=== PATIENT | female | born 1965 | race Caucasian/White ===

== ENCOUNTER 2017-04-27 19:20 | Emergency (ER) | payer OTHER, SELFPAY | END 2017-04-27 19:51 | disposition home or self-care (01) | PROVIDERS: Emergency Provider Nurse Practitioner Family; Visit Provider Nurse Practitioner Family | DX: J02.0 Streptococcal pharyngitis (principal); Z90.710 Acquired absence of both cervix and uterus; F17.210 Nicotine dependence, cigarettes, uncomplicated; Z79.52 Long term (current) use of systemic steroids; Z88.6 Allergy status to analgesic agent; Z88.5 Allergy status to narcotic agent; Z88.0 Allergy status to penicillin | CPT/HCPCS: 87804; 87880; 99201 ==

== ENCOUNTER 2021-10-16 17:46 | Emergency (ER) | payer SELFPAY ==
[2021-10-16 19:02] VITALS: BP 149/68; PULSE 81; RESP 17; TEMP 36.7; O2SAT 96; BMI 23.0
--- NOTE | 2021-10-16 19:08 | HMH.EDUTC ---
[facility] Disposition Clinical Impression: Pharyngitis Qualifiers: Pharyngitis/tonsillitis etiology: unspecified etiology Qualified Code(s): J02.9 - Acute pharyngitis, unspecified Disposition: Home, Self-Care Condition on Discharge: Good Instructions: Strep Throat, DI for Strep Throat Additional Instructions: Drink plenty of fluids. Take tylenol or ibuprofen for pain or fever. Take the medications as directed. Follow up with your regular doctor. GO TO THE ER FOR ANY WORSENING SYMPTOMS Prescriptions: Cefdinir [Omnicef 300mg Capsule] 300 mg PO BID #20 cap Transmission Status: Received by [id number] predniSONE [Prednisone 20mg Tab] 20 mg PO BID 4 Days #8 tab Transmission Status: Received by [id number] Referrals: Provider,Referral, MD [Primary Care Provider] - Time of Disposition: 19:34 Medical Decision Making - Medical Records Medical records reviewed: No: I reviewed the patient's medical records. - Mitchell Inquiry Pt receiving controlled substance: No Vital Signs: 10/16/21 19:02 10/16/21 19:41 Temperature 98.0 F 98.0 F Temperature Source Oral Pulse Rate 81 Pulse Rate [Left Radial] 81 Respiratory Rate 17 17 Blood Pressure 149/68 H Blood Pressure [Right Arm] 149/68 H Blood Pressure Mean [Right Arm] 95 02 Sat by Pulse Oximetry 96 - Lab Data Lab Results 10/16/21 19:04: Group A Strep Rapid Negative Orders (Tests/Meds): ORDERS Category Date Time Status Strep Screen Confirmation Stat Micro 10/16/21 19:04 Received [facility] HPI - General Stated complaint: sore throat, cough, congestion Time Seen by Provider: 10/16/21 19:08 Source of Information: Patient Description of Symptoms (Recalled from Triage Doc. by RN): patient comes in today with complaints of sore throat that began today. patient also complaints of sore throat and cough that has been going on for 2 weeks. HEENT Symptoms (Recalled from RN notes): Yes Resp Symptoms (Recalled from RN notes): Yes Skin Symptoms (Recalled from RN notes): No MS Symptoms (Recalled from RN notes): No Functional Status (Recalled from RN notes): wnl - History of Present Illness Provider Complaint: She states that she has had a sore throat for the past 2 weeks. Her throat has been very sore and she is afraid she has strep throat. She denies fever and chills. She refuses a covid-19 swab today. - Related Data Previous Rx's Medication Instructions Recorded Cefdinir [Omnicef 300mg Capsule] 300 mg PO BID #20 cap 10/16/21 predniSONE [Prednisone 20mg 20 mg PO BID 4 Days #8 tab 10/16/21 Tab] Allergies Allergy/AdvReac Type Severity Reaction Status Date / Time codeine [CODEINE] Allergy Mild Verified 10/16/21 19:05 Penicillins [PENICILLINS] Allergy Mild Verified 10/16/21 19:05 ibuprofen [IBUPROFEN] Allergy Unknown Verified 10/16/21 19:05 - Worker's Comp Is this a Worker's Comp case?: No [facility] History - Hepatitis A Screen Attestation statement:: This patient has been screened for Hepatitis A risk factors. I have reviewed the patient's past medical history: Yes ROS Obtained: Yes All systems reviewed & no additional complaints - Constitutional Constitutional: Denies chills, Denies fever(s), Reports poor appetite, Reports malaise - Eyes Eyes: Denies eye discharge - ENT Ears, Nose, Mouth, and Throat: Reports as per HPI - Cardiovascular Cardiovascular: Denies chest pain - Respiratory Respiratory: Denies chest congestion, Denies cough Physical Exam - General General appearance: alert, in no apparent distress - Head Head exam: atraumatic, normocephalic, normal inspection - Eye Eye exam: Present: normal appearance, PERRL, EOMI - ENT ENT exam: Present: mucous membranes moist, normal external ear exam - Expanded ENT Exam TM/Canal exam: Bilateral TM: erythema, bulging Nose exam: Absent: sinus tenderness Nasal speculum exam: Bilateral: normal Throat exam: Presen
[2021-10-16 19:26] LABS: Strep Scrn Group A (Rapid) Negative (Negative)
[2021-10-16 19:41] VITALS: BP 149/68; PULSE 81; RESP 17; TEMP 36.7
== END 2021-10-16 19:42 | disposition home or self-care (01) ==
PROVIDERS: Emergency Provider Nurse Practitioner Family
DX: J02.9 Acute pharyngitis, unspecified (principal)
CPT/HCPCS: 87430; 99212; G0463

== ENCOUNTER 2022-03-24 15:16 | Emergency (ER) | payer OTHER, SELFPAY ==
[2022-03-24 15:18] VITALS: BP 165/64; PULSE 66; RESP 16; TEMP 36.9; O2SAT 99; BMI 23.0
--- NOTE | 2022-03-24 15:34 | CT_ITS ---
PROCEDURE INFORMATION: Exam: CT Abdomen And Pelvis With Contrast Exam date and time: 03/24/2022 5:14 PM Age: 56 years old Clinical indication: Abdominal pain; Generalized; Additional info: Abd pain TECHNIQUE: Imaging protocol: Computed tomography of the abdomen and pelvis with contrast. Radiation optimization: All CT scans at this facility use at least one of these dose optimization techniques: automated exposure control; mA and/or kV adjustment per patient size (includes targeted exams where dose is matched to clinical indication); or iterative reconstruction. Contrast material: ISOVUE; Contrast volume: 75 ml; Contrast route: IV; COMPARISON: No relevant prior studies available. FINDINGS: Lungs: There are few small pulmonary nodules left lung base measuring up to 7 mm that needs further evaluation. Pleural spaces: There is minimal right basilar effusion. Liver: Liver is mildly enlarged with diffuse fatty infiltration. There are numerable ring enhancing liver lesions with target like appearance measuring up to 3 cm highly suspicious for diffuse liver metastasis. Gallbladder and bile ducts: Gallbladder has been removed. Bile ducts are not appreciably dilated. Pancreas: Normal. No ductal dilation. Spleen: Normal. No splenomegaly. Adrenal glands: There is nodular thickening involving the medial and lateral limbs of both adrenal glands more typical of benign nodular hyperplasia. Kidneys and ureters: Normal. No hydronephrosis. Stomach and bowel: Unremarkable. No obstruction. No mucosal thickening. Appendix: No evidence of appendicitis. Intraperitoneal space: Unremarkable. No free air. No significant fluid collection. Vasculature: Scattered atherosclerotic changes of the abdominal aorta and iliac vessels. No aortic aneurysm. Lymph nodes: Unremarkable. No enlarged lymph nodes. Urinary bladder: Unremarkable as visualized. Reproductive: Uterus has been removed. Bones/joints: Unremarkable. No acute fracture. Soft tissues: Unremarkable. IMPRESSION: 1. Mild hepatomegaly with diffuse liver metastasis from unknown primary. 2. Few small pulmonary nodules left lower lobe measuring up to [address] chest for further evaluation. 3. Probable benign nodular thickening involving both right left adrenal glands.
--- NOTE | 2022-03-24 15:36 | HMH.EDGENADL ---
Discharge Plan Disposition Patient Disposition: Home, Self-Care Condition: Good Prescriptions Prescriptions: No Action prednisone 20 MG tablet 20 mg PO BID 4 Days Qty: 8 0RF cefdinir 300 MG capsule 300 mg PO BID Qty: 20 0RF Referrals Follow up/Referrals: Katarzyna Gomez MD [Staff Physician] - See instructions Provider,MD Zhoaib [Primary Care Provider] - See instructions Activity Restrictions/Add. Instructions Additional Instructions/Restrictions: Avoid large meals and eat small frequent meals instead. Return for worsening abdominal pain, vomiting or other concerns. Clinical Impressions Clinical Impression: Abdominal pain Instructions Patient Instructions: DI for Acute Abdominal Pain Discharge ED Provider: Jose Tamayo General Adult HPI General Chief complaint: Abdominal Pain Stated complaint: abd pain, bilateral knee to toe swelling Time Seen by Provider: 03/24/22 15:25 History of Present Illness HPI narrative: Patient presents with a 2-week history of upper abdominal pain. She describes the pain as moderate to severe and worse sometimes with certain positional changes. She denies vomiting or diarrhea she denies fever. She is status post previous hysterectomy and cholecystectomy. Related Data Previous Rx's Medication Instructions Recorded cefdinir 300 mg capsule 300 mg PO BID #20 caps 10/16/21 prednisone 20 mg tablet 20 mg PO BID 4 days #8 tabs 10/16/21 Allergies Allergy/AdvReac Type Severity Reaction Status Date / Time codeine [CODEINE] Allergy Mild Verified 10/16/21 19:05 Penicillins [PENICILLINS] Allergy Mild Verified 10/16/21 19:05 ibuprofen [IBUPROFEN] Allergy Unknown Verified 10/16/21 19:05 [facility] Social History Smoking Status: Current every day smoker alcohol intake: never current occupational status: unemployed Travel in the last 8 weeks: None ROS Obtained: Yes All systems reviewed & no additional complaints except as documented Constitutional Constitutional: Reports system reviewed and no additional complaints, except as documented Eyes Eyes: Reports system reviewed and no additional complaints, except as documented ENT Ears, Nose, Mouth, and Throat: Reports system reviewed and no additional complaints, except as documented Cardiovascular Cardiovascular: Reports system reviewed and no additional complaints, except as documented Respiratory Respiratory: Reports system reviewed and no additional complaints, except as documented Gastrointestinal Gastrointestingal: Reports system reviewed and no additional complaints, except as documented Genitourinary Female Genitourinary: Reports system reviewed and no additional complaints, except as documented Musculoskeletal Musculoskeletal: Reports system reviewed and no additional complaints, except as documented and Reports back pain Integumentary/Breasts Skin/Breast: Reports system reviewed and no additional complaints, except as documented Neurologic Neurologic: Reports system reviewed and no additional complaints, except as documented Hematologic/Lymphatic Henatologic/Lymphatic: Reports system reviewed and no additional complaints, except as documented Allergic/Immunologic Allergic/Immunologic: Reports system reviewed and no additional complaints, except as documented Physical Exam General General appearance: alert and in no apparent distress Head Head exam: atraumatic Eye Eye exam: Present normal appearance ENT ENT exam: Present normal exam Neck Neck exam: Present normal inspection Chest Chest inspection: Present normal inspection Respiratory Respiratory exam: Present normal lung sounds bilaterally Cardiovascular Cardiovascular exam: Present regular rate and normal rhythm Abdominal Exam Abdominal exam: Present soft and tenderness (There is diffuse upper abdominal tenderness where there is palpable firmness throughout the upper quadrants consistent with hepatosplenomegaly.) Extremities Exam Extremities
--- NOTE | 2022-03-24 15:39 | PC.NURSE ---
urine obtained sent to lab
[2022-03-24 15:55] LABS: Microscopic, Urine URINE MICROSCOPIC (MICROSCOPIC)
[2022-03-24 15:56] LABS: Basophils # 0.2 K/mm3 (0-0.2); Eosinophils # 0.1 K/mm3 (0.0-0.4); Eosinophils % 0.7 % (0.1-12.0); Hematocrit 47.6 % (37.0-47.0); Hemoglobin 15.2 g/dL (12.2-16.2); Lymphocytes # 1.3 K/mm3 (0.7-4.5); Lymphocytes % 6.7 % (10-50); Mean Corpuscular HGB Conc 31.9 g/dL (31.8-35.4); Mean Corpuscular Hemoglobin 31.4 pg (27.0-31.2); Mean Corpuscular Volume 98.1 fl (81-99); Mean Platelet Volume 10.5 fl (7.4-10.4); Monocytes # 0.9 K/mm3 (0.1-1.0); Monocytes % 4.6 % (1.7-9.3); Neutrophils # 17.1 K/mm3 (1.8-7.8); Platelet Count 191 K/mm3 (142-424); Red Blood Count 4.85 M/mm3 (4.20-5.40); Red Cell Distribution Width 14.3 % (11.5-17.5); White Blood Count 19.6 K/mm3 (4.8-10.8)
[2022-03-24 15:59] LABS: Chloride 100 mmol/L (98-107); Potassium 3.6 mmoL/L (3.5-5.1); Sodium 140 mmol/L (136-145)
[2022-03-24 16:02] LABS: Alanine Aminotransferase 232 U/L (12-78); Albumin/Globulin Ratio 1.4 (1.1-1.8); Alkaline Phosphatase 228 U/L (38-126); Anion Gap 13.6 mEq/L (5-15); Aspartate Amino Transferase 98 U/L (14-36); Bilirubin,Total 0.5 mg/dl (0.2-1.3); Blood Urea Nitrogen 19 mg/dl (7-17); Calcium 9.2 mg/dl (8.4-10.2); Carbon Dioxide 30 mmol/L (22.0-30.0); Creatinine Clearance Estimated 83 mL/min (50-200); Estimated Glomerular Filt Rate 86 ml/min (>60); GFR (African American) 104 ML/MIN (>60); Globulin 2.8 g/dL (1.3-3.2); Glucose 103 mg/dl (74-100); Lipase 67 U/L (23-300); Total Protein,Serum 6.8 g/dl (6.3-8.2)
[2022-03-24 16:03] LABS: Appearance,Urine CLEAR (Clear); Bilirubin,Urine Negative (Negative); Blood, Urine Negative (Negative); Color,Urine YELLOW (Yellow); Glucose,Urine (UA) Negative (Negative); Ketones,Urine Negative (Negative); Leukocyte Esterase,Urine Negative (Negative); Nitrate,Urine Negative (Negative); Protein,Urine Negative (Negative); Urobilinogen,Urine 0.2 EU/dl (0.2)
[2022-03-24 16:07] LABS: MANUAL DIFFERENTIAL MANUAL DIFFERENTIAL (MANUAL DIFF)
[2022-03-24 16:25] LABS: Lymphocytes % 16 % (10-50); Monocytes % 2 % (2-9); Neutrophils % 82 % (42-76); Platelet Estimate Normal; RBC Morphology Normal; Total Cells Counted 100
--- NOTE | 2022-03-24 17:09 | CT_ITS ---
PROCEDURE INFORMATION: Exam: CT Chest With Contrast; Diagnostic Exam date and time: 03/24/2022 6:15 PM Age: 56 years old Clinical indication: Shortness of breath; Additional info: Rule out mets TECHNIQUE: Imaging protocol: Diagnostic computed tomography of the chest with contrast. Radiation optimization: All CT scans at this facility use at least one of these dose optimization techniques: automated exposure control; mA and/or kV adjustment per patient size (includes targeted exams where dose is matched to clinical indication); or iterative reconstruction. Contrast material: ISOVUE; Contrast volume: 50 ml; Contrast route: IV; COMPARISON: CR CXR CHEST(2 VIEWS-NOT PORTABLE) 02/01/2016 12:40 PM FINDINGS: Thyroid: There are small nodules left lobe of the thyroid gland likely benign by size criteria. Lungs: There are mild upper lobe emphysematous changes. There are 2 circumscribed pulmonary nodules left lower lobe largest which measures 7 mm, indeterminate. There are minor bibasilar atelectatic changes. Pleural spaces: Minimal right basilar pleural effusion, nonspecific. Heart: Heart is mildly enlarged. Mild scattered calcification of coronary arteries. Lymph nodes: There is mild-moderate mediastinal and bilateral hilar lymphadenopathy with lymph nodes measuring up to 1.8 cm possibly metastatic in nature. There is a 1.3 cm left axillary lymph node, nonspecific. Vasculature: Unremarkable. No aortic aneurysm. Liver: Note is again made of numerous enhancing liver lesions likely metastatic in nature. Bones/joints: Unremarkable. No acute fracture. No suspicious bone lesions appreciated. Soft tissues: Unremarkable. IMPRESSION: 1. Mild-moderate mediastinal and hilar lymphadenopathy possibly metastatic in nature. 2. Two pulmonary nodules left lower lobe largest which measures 7 mm, indeterminate. Consider repeat CT chest in 3 months for continued surveillance. 3. Additional findings as above. COMMENTS: Consistent with the [place]'s Incidental Findings Committee white paper (J Am Emelina Radiol 2015): In patients aged 35 years and older with an incidental thyroid nodule equal to or greater than 1.[address], MRI or extrathyroidal US, further evaluation with dedicated thyroid US is recommended for patients with normal life expectancy and without comorbidities. For smaller nodules without suspicious features, no further evaluation or follow up is recommended.
--- NOTE | 2022-03-24 17:13 | PC.NURSE ---
RADIOLOGY AWARE OF CT CHEST
--- NOTE | 2022-03-24 17:52 | PC.NURSE ---
and daughter at bedside discussing pt results. Rounded on them at this time. No new needs at this time.
--- NOTE | 2022-03-24 18:38 | PC.NURSE ---
rounded on pt at this time. no new needs
--- NOTE | 2022-03-24 19:00 | PC.NURSE ---
speaking with Dr. Gomez
[2022-03-24 19:19] VITALS: BP 157/78; PULSE 60; RESP 16; TEMP 36.9; O2SAT 97
== END 2022-03-24 19:20 | disposition home or self-care (01) ==
PROVIDERS: Emergency Provider Emergency Medicine
DX: J02.9 Acute pharyngitis, unspecified (principal); R10.9 Unspecified abdominal pain; M25.562 Pain in left knee; M25.561 Pain in right knee; M79.89 Other specified soft tissue disorders; R16.2 Hepatomegaly with splenomegaly, not elsewhere classified; F17.200 Nicotine dependence, unspecified, uncomplicated; Z88.1 Allergy status to other antibiotic agents; Z88.5 Allergy status to narcotic agent; Z82.49 Family history of ischemic heart disease and other diseases of the circulatory system; Z83.438 Family history of other disorder of lipoprotein metabolism and other lipidemia; Z83.3 Family history of diabetes mellitus
CPT/HCPCS: 71260; 74177; 80053; 81001; 83690; 85007; 85025; 99285; Q9967

== ENCOUNTER 2022-03-31 11:58 | Inpatient (IN) | payer OTHER, SELFPAY ==
--- NOTE | 2022-03-31 12:04 | EXP.HP ---
History of Present Illness *Admission Date: 03/31/22 *Reason for visit:: fever, SOA *History of present illness: Ms. 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 She presented to her PCP today with complaint of fever and shortness of breath. This began about a day ago. She originally was coming to the hospital today for CT-guided liver biopsy and was declined due to her temperature. Has been going through work-up to diagnose suspected malignancy with liver lesions, lung nodules, mediastinal lymph nodes. She has no significant other past medical history per her report. Does smoke about a pack a day. Appears chronically ill on exam. Complains of cough and shortness of breath. No nausea or vomiting. No chest pain. Tolerating 3 L nasal cannula at this time. Review from PCP note today gives more extensive history of recent work-up. See as follows Usual state of health until about 3 weeks ago she was pulling her [id number]-ke-ceu up in bed and she felt a pain in her rib cage since that time she has had pain and swelling in her abdomen and swelling in her bilateral lower extremities she denies either of which being a problem prior to this.? She went to the ER on 03/24/2022.? In the ER her lab work revealed white blood cell of 19.6, AST 98 ALT 232 alkaline phosphatase 228, CT of the abdomen revealed hepatomegaly with innumerable ring-enhancing liver lesions measuring up to 3 cm and described as highly suspicious for malignancy CT of the lungs revealed mild to moderate mediastinal hilar lymphadenopathy possibly metastatic in nature and 2 pulmonary nodules in the left lower lobe measuring 7 cm.? Patient states that the swelling in her abdomen and legs is uncomfortable however she was advised not to take Tylenol and she is allergic to ibuprofen stating that it results in a rash.? She was seen here on 03/27/2022 and started on Lasix with no improvement in edema.? She saw Dr. Gomez on 03/28/[address]-guided liver biopsy and PET scan which are pending [facility] Medical History Pharyngitis Seasonal allergies Surgical History History of cholecystectomy History of total hysterectomy History of tubal ligation Family History Diabetes Father Hyperlipidemia Father Mother Heart attack Mother Hypertension Father Mother Social History Smoking Status: Former smoker alcohol intake: never substance use type: denies use current occupational status: unemployed Travel in the last 8 weeks: None marital status: single number of children: 2 Review of Systems Review of Systems Review of systems (narrative): 14 point review of systems performed, pertinent positives and negatives as per HPI Meds Home Medications and Allergies Home Medications Medication Instructions Recorded Confirmed Type celecoxib 200 mg capsule (Celebrex) 200 mg PO HS Arthritis 03/31/22 03/31/22 History furosemide 20 mg tablet 20 mg PO DAILY diuretic 03/31/22 03/31/22 History potassium chloride 10 mEq 10 meq PO DAILY potassium 03/31/22 03/31/22 History capsule,extended release supplement New Prescriptions to Start Prescriptions: Allergies Allergy/AdvReac Type Severity Reaction Status Date / Time codeine [CODEINE] Allergy Mild Verified 03/31/22 10:23 Penicillins [PENICILLINS] Allergy Mild Verified 03/31/22 10:23 ibuprofen [IBUPROFEN] Allergy Unknown Verified 03/31/22 10:23 diphenhydramine Allergy Verified 03/31/22 10:23 [From Benadryl] Opioids - Morphine Analogues Allergy Agitated Verified 03/31/22 10:23 Exam Constitutional Constitutional: mild distress, average body habitus, chronically ill appearing and cooperative *Routine HEENT Exam He
--- NOTE | 2022-03-31 12:05 | PC.NURSE ---
patient arrived to floor by wheelchair from dr. torres
[2022-03-31 12:08] VITALS: BP 155/116; PULSE 91; RESP 21; TEMP 36.8; O2SAT 94; BMI 23.2
[2022-03-31 12:52] LABS: Coronavirus 19, PCR Not Detected (NotDetected); Influenza B, PCR Not Detected (NotDetected)
[2022-03-31 13:00] LABS: Chloride 94 mmol/L (98-107); Sodium 139 mmol/L (136-145)
[2022-03-31 13:02] LABS: Alanine Aminotransferase 272 U/L (12-78); Aspartate Amino Transferase 165 U/L (14-36); Blood Urea Nitrogen 21 mg/dl (7-17); Creatinine Clearance Estimated 83 mL/min (50-200); Estimated Glomerular Filt Rate 86 ml/min (>60); GFR (African American) 104 ML/MIN (>60)
[2022-03-31 13:03] LABS: Albumin Level 3.8 g/dl (3.5-5.0); Albumin/Globulin Ratio 1.4 (1.1-1.8); Alkaline Phosphatase 343 U/L (38-126); Bilirubin,Total 0.8 mg/dl (0.2-1.3); Calcium 8.9 mg/dl (8.4-10.2); Globulin 2.8 g/dL (1.3-3.2); Glucose 92 mg/dl (74-100); Magnesium 2.5 mg/dl (1.6-2.3); Total Protein,Serum 6.6 g/dl (6.3-8.2)
[2022-03-31 13:04] LABS: Basophils # 0.1 K/mm3 (0-0.2); Eosinophils % 0.1 % (0.1-12.0); Hematocrit 46.2 % (37.0-47.0); Hemoglobin 15.1 g/dL (12.2-16.2); Lymphocytes # 0.4 K/mm3 (0.7-4.5); Lymphocytes % 3.1 % (10-50); Mean Corpuscular HGB Conc 32.7 g/dL (31.8-35.4); Mean Corpuscular Hemoglobin 31.9 pg (27.0-31.2); Mean Corpuscular Volume 97.5 fl (81-99); Mean Platelet Volume 10.4 fl (7.4-10.4); Monocytes # 0.4 K/mm3 (0.1-1.0); Neutrophils # 12.1 K/mm3 (1.8-7.8); Neutrophils % 92.7 % (37.0-80.0); Platelet Count 147 K/mm3 (142-424); Red Blood Count 4.74 M/mm3 (4.20-5.40); Red Cell Distribution Width 14.6 % (11.5-17.5)
[2022-03-31 13:19] LABS: Anion Gap 7.7 mEq/L (5-15); Carbon Dioxide 40 mmol/L (22.0-30.0); Potassium 2.7 mmoL/L (3.5-5.1)
[2022-03-31 13:23] LABS: Influenza A, PCR Detected (NotDetected)
[2022-03-31 13:44] LABS: MANUAL DIFFERENTIAL MANUAL DIFFERENTIAL (MANUAL DIFF)
--- NOTE | 2022-03-31 15:37 | XR_ITS ---
FINAL REPORT TECHNIQUE: Single view chest CLINICAL HISTORY: pneumonia, soa, cough COMPARISON: 03/24/2022 FINDINGS: A single view of the chest was obtained. The heart is enlarged. There is pulmonary vascular congestion. There are mild bibasilar opacities, favor atelectasis. There is no pneumothorax. Osseous structures are unremarkable. IMPRESSION: Mild bibasilar opacities, favor atelectasis. Reviewed, Interpreted and Dictated by Jayro Muniz III, MD Transcribed by Amelia Madrid Authenticated and [facility]
[2022-03-31 15:59] LABS: Lymphocytes % 10 % (10-50); Monocytes % 3 % (2-9); Neutrophils % 87 % (42-76); Nucleated Red Blood Cells 3; Platelet Estimate Slight Decrease; RBC Morphology Normal; Total Cells Counted 100
[2022-03-31 16:00] VITALS: BP 162/86; PULSE 94; RESP 22; TEMP 36.6; O2SAT 94
--- NOTE | 2022-03-31 16:12 | HMH.PHAINT1 ---
Pharmacy Intervention Comments: MEDICATION RECONCILIATION COMPLETE USING EXTERNAL PHARMACY FILL HISTORY.
[2022-03-31 19:50] LABS: NT Pro Brain Natriuretic Pep. 1720 pg/mL (0-125)
[2022-03-31 20:00] VITALS: BP 161/88; PULSE 100; PULSE 93; RESP 22; TEMP 37.2; O2SAT 97
[2022-03-31 22:10] VITALS: O2SAT 90
[2022-04-01] VITALS (10 sets, daily range): BP systolic 127–154; BP diastolic 73–87; PULSE 75–102; RESP 16–27; TEMP 36.5–37.4; O2SAT 84–96; BMI 22.3
--- NOTE | 2022-04-01 04:33 | PC.NURSE ---
pt is a&o, drowsy, follows verbal commands. She is now on venti mask 12L 40% fio2. pt was placed on venti mask because her and her daughter states she is a mouth breather . upon initial assessment pt had nasal cannula in mouth, with o2 sats 86-88%. NC replaced with venti mask. o2 sats maintained >90% unless pt exerts herself. her o2 sat was noted to decrease to 82% while using BSC, and quickly increases to 90% or greater. Rhonchi and wheezes noted. +2 pitting edema noted to BLE.
[2022-04-01 07:01] LABS: Basophils # 0.1 K/mm3 (0-0.2); Basophils % 0.5 % (0.1-2.0); Eosinophils % 0.3 % (0.1-12.0); Hematocrit 45.9 % (37.0-47.0); Hemoglobin 14.5 g/dL (12.2-16.2); Lymphocytes # 0.6 K/mm3 (0.7-4.5); Lymphocytes % 5.3 % (10-50); Mean Corpuscular HGB Conc 31.5 g/dL (31.8-35.4); Mean Corpuscular Hemoglobin 31.2 pg (27.0-31.2); Monocytes # 0.3 K/mm3 (0.1-1.0); Monocytes % 2.2 % (1.7-9.3); Neutrophils # 11.1 K/mm3 (1.8-7.8); Neutrophils % 91.6 % (37.0-80.0); Platelet Count 119 K/mm3 (142-424); Red Blood Count 4.64 M/mm3 (4.20-5.40); Red Cell Distribution Width 14.6 % (11.5-17.5); White Blood Count 12.1 K/mm3 (4.8-10.8)
[2022-04-01 07:12] LABS: MANUAL DIFFERENTIAL MANUAL DIFFERENTIAL (MANUAL DIFF)
[2022-04-01 07:18] LABS: Alanine Aminotransferase 218 U/L (12-78); Albumin Level 3.4 g/dl (3.5-5.0); Albumin/Globulin Ratio 1.3 (1.1-1.8); Alkaline Phosphatase 356 U/L (38-126); Aspartate Amino Transferase 150 U/L (14-36); Bilirubin,Total 0.8 mg/dl (0.2-1.3); Blood Urea Nitrogen 24 mg/dl (7-17); Calcium 8.5 mg/dl (8.4-10.2); Chloride 93 mmol/L (98-107); Creatinine Clearance Estimated 83 mL/min (50-200); Estimated Glomerular Filt Rate 86 ml/min (>60); GFR (African American) 104 ML/MIN (>60); Globulin 2.7 g/dL (1.3-3.2); Glucose 93 mg/dl (74-100); Magnesium 2.5 mg/dl (1.6-2.3); Total Protein,Serum 6.1 g/dl (6.3-8.2)
[2022-04-01 07:25] LABS: Anion Gap 9.6 mEq/L (5-15); Carbon Dioxide 41 mmol/L (22.0-30.0); Sodium 141 mmol/L (136-145)
[2022-04-01 07:27] LABS: Potassium 2.6 mmoL/L (3.5-5.1)
[2022-04-01 07:50] LABS: Lymphocytes % 9 % (10-50); Monocytes % 2 % (2-9); Neutrophils % 89 % (42-76); Nucleated Red Blood Cells 1; Total Cells Counted 100
[2022-04-01 07:51] LABS: Anisocytosis 1+; Hypochromasia 1+; Macrocytosis 1+; Ovalocytes 1+; Platelet Estimate Slight Decrease
--- NOTE | 2022-04-01 08:07 | PC.NURSE ---
Addendum entered by Alicia Logan RN 04/01/22 13:09: ordered, 40meq po potassium x one as well as 20meq of IV potassium Original Note: lab called and reported critical potassium. this was repeated and verified with lab and then called to dr johnson hospitalist
--- NOTE | 2022-04-01 11:47 | CT_ITS ---
FINAL REPORT TECHNIQUE: Thin section axial CT images were obtained from the lung apices to the upper abdomen. IV contrast was administered. MIP 3-D reformats were obtained. This study was performed with techniques to keep radiation doses as low as reasonably achievable (ALARA). Individualized dose reduction techniques using automated exposure control or adjustment of mA and/or kV according to the patient's size were employed. CLINICAL HISTORY: hypoxia COMPARISON: March 24, 2022 FINDINGS: Widespread mediastinal and hilar adenopathy is somewhat worse. A left axillary lymph node measures 16 mm and previously measured 13 mm. A posterior right hilar lymph node measures 21 mm while previously measuring 15 mm. Other lymph nodes are somewhat larger. There is no pulmonary embolism. There is a small pericardial effusion. There is a small right pleural effusion. There are moderate changes of emphysema. There is mild bibasilar atelectasis. There are widespread patchy pulmonary opacities new from the prior exam worrisome for multifocal pneumonia. A nonspecific 8 mm left lower lobe nodule is stable. There are widespread low-attenuation masses throughout the liver most worrisome for widespread hepatic metastatic disease. Abscesses could have a similar appearance. There is bilateral adrenal gland enlargement could represent hyperplasia versus metastasis. IMPRESSION: New pulmonary opacities consistent with bilateral pneumonia. Widespread adenopathy and hepatic masses worrisome for widespread neoplastic involvement. An infectious process with hepatic abscesses could have a similar appearance. Reviewed, Interpreted and Dictated by Jayro Muniz III, MD Transcribed by Tuan Ibanez Authenticated and [facility]
--- NOTE | 2022-04-01 14:59 | PC.NURSE ---
patient has done okay today. does prefer venti mask because of being a mouth breather when asleep. room air sat of 84%. did tolerate 4l of o2 okay. tolerated transport to ct well. has been drowsy but easy to arouse and speak with staff. daughter has been at bedside. noted abdomen to be slightly distended. no complaints currently of pain. does state sob has improved. has ate some this shift. bed changed. new iv started. encouraged patient and daughter to ring out as needed
[2022-04-01 16:39] LABS: Alanine Aminotransferase 198 U/L (12-78); Albumin Level 3.2 g/dl (3.5-5.0); Albumin/Globulin Ratio 1.2 (1.1-1.8); Alkaline Phosphatase 308 U/L (38-126); Anion Gap 8.9 mEq/L (5-15); Aspartate Amino Transferase 129 U/L (14-36); Bilirubin,Total 0.5 mg/dl (0.2-1.3); Blood Urea Nitrogen 22 mg/dl (7-17); Calcium 8.4 mg/dl (8.4-10.2); Carbon Dioxide 39 mmol/L (22.0-30.0); Chloride 96 mmol/L (98-107); Creatinine Clearance Estimated 80 mL/min (50-200); Estimated Glomerular Filt Rate 86 ml/min (>60); GFR (African American) 104 ML/MIN (>60); Globulin 2.7 g/dL (1.3-3.2); Glucose 248 mg/dl (74-100); Sodium 141 mmol/L (136-145); Total Protein,Serum 5.9 g/dl (6.3-8.2)
[2022-04-01 16:49] LABS: Potassium 2.9 mmoL/L (3.5-5.1)
--- NOTE | 2022-04-01 18:21 | EXP.ACUTE.PN ---
Subjective *Date: 04/01/22 *Time: 08:45 Interval history: Patient did well overnight no acute concerns or complaints this morning. Discussed increasing oxygen requirement and if the patient would want intubation, she is agreeable that is what she wants if needed Medical Exam Vital signs and Labs for Last 24 Hours: Vital Signs Temp Pulse Pulse Resp BP Pulse Ox FiO2 04/01/22 16:00 84 04/01/22 16:00 97.7 F 81 16 136/73 95 04/01/22 12:00 102 H 04/01/22 11:52 97.7 F 91 H 24 127/79 96 04/01/22 10:29 84 L 04/01/22 08:00 89 04/01/22 08:00 97.9 F 83 27 H 151/76 H 92 L 04/01/22 00:00 100 H 03/31/22 20:00 100 H 04/01/22 00:00 100 H 04/01/22 04:00 90 04/01/22 04:00 99.3 F 88 20 148/81 H 95 04/01/22 00:00 98.5 F 93 H 20 154/87 H 93 L 03/31/22 22:10 90 L 12 03/31/22 20:00 99.0 F 93 H 22 161/88 H 97 Intake and Output 04/01/22 04/01/22 04/01/22 07:59 15:59 23:59 Intake Total 519 / 2067 600 / 2067 948 / 2067 Output Total 500 / 2700 2200 / 2700 Balance 19 / -633 600 / -633 -1252 / -633 Intake: Intake, Oral Amount 600 / 1060 460 / 1060 Intake, Total IV Amount 519 / 1007 488 / 1007 KCl 20mEq/100ml 100 ml @ 50 mls 100 / 100 /hr IV ONCE ONE Rx#:[id number] Ringers Solution,Lactated 1,000 519 / 907 388 / 907 ml @ 50 mls/hr IV .Q20H [facility] Rx #:[id number] Output: Output, Urine Amount 500 / 2700 2200 / 2700 Other: Weight 57.153 kg Patient Weight 04/01/22 23:59 Weight 57.153 kg Laboratory Results - last 24 hr 03/31/22 18:49: NT-Pro-B Natriuret Pep 1720 H 04/01/22 06:43: WBC 12.1 H, RBC 4.64, Hgb 14.5, Hct 45.9, MCV 99.0, MCH 31.2, MCHC 31.5 L, RDW 14.6, Plt Count 119 L, MPV 10.0, Neut % (Auto) 91.6 H, Lymph % (Auto) 5.3 L, [place] % (Auto) 2.2, Eos % (Auto) 0.3, Baso % (Auto) 0.5, Neut # (Auto) 11.1 H, Lymph # (Auto) 0.6 L, [place] # (Auto) 0.3, Eos # (Auto) 0.0, Baso # (Auto) 0.1, Total Counted 100, Neutrophils % (Manual) 89 H, Lymphocytes % (Manual) 9 L, Monocytes % (Manual) 2, Nucleated RBCs 1, Platelet Estimate Slight decrease, Hypochromasia 1+, Anisocytosis 1+, Macrocytosis 1+, Ovalocytes 1+ 04/01/22 06:43: Sodium 141, Potassium 2.6 L*, Chloride 93 L, Carbon Dioxide 41 H*, Anion Gap 9.6, BUN 24 H, Creatinine 0.70, Estimated Creat Clear 83, Estimated GFR 86, Est GFR ( Amer) 104, Glucose 93, Calcium 8.5, Magnesium 2.5 H, Total Bilirubin 0.8, AST 150 H, ALT 218 H, Alkaline Phosphatase 356 H, Total Protein 6.1 L, Albumin 3.4 L D, Globulin 2.7, Albumin/Globulin Ratio 1.3 04/01/22 16:06: Sodium 141, Potassium 2.9 L*, Chloride 96 L, Carbon Dioxide 39 H, Anion Gap 8.9, BUN 22 H, Creatinine 0.70, Estimated Creat Clear 80, Estimated GFR 86, Est GFR ( Amer) 104, Glucose 248 H D, Calcium 8.4, Total Bilirubin 0.5, AST 129 H, ALT 198 H, Alkaline Phosphatase 308 H, Total Protein 5.9 L, Albumin 3.2 L, Globulin 2.7, Albumin/Globulin Ratio 1.2 I & O for Labs for Last 24 Hours: Intake & Output 03/29/22 03/30/22 03/31/22 04/01/22 23:59 23:59 23:59 23:59 Intake Total 410 / 410 2066 / 2066 Output Total 700 / 700 2700 / 2700 Balance -290 / -290 -633 / -633 Weight 59.449 kg 57.153 kg Microbiology Reports for the Last 24 Hours: Microbiology 03/31/22 17:00 Sputum - Expectorated Sputum Gram Stain - Final Head: Present atraumatic Neck: Present full ROM Respiratory: Absent accessory muscle use Comment:: Bilateral rhonchi and wheeze Cardiac: Present Reg Rate and Rhythm and S1/S2 GI: Present soft and distention Extremities: Present full ROM Assessment and Plan *Assessment and plan (1) Influenzal pneumonia: Status: Acute Category: Medical Code(s): J11.00 - Influenza due to unidentified influenza virus with unspecified type of pneumonia (2) Secondary bacterial pneumonia: Status: Acute Category: Medical Code(s): J15.9 - Uns
--- NOTE | 2022-04-01 19:57 | EXP.ACUTE.PN ---
Subjective *Date: 04/02/22 *Time: 15:37 Interval history: No issues overnight. Having abdominal pain and tenderness does not have a bowel movement since last week. Overall feels better. Edema has improved. Feels that she can go home when ready, possibly tomorrow Medical Exam Vital signs and Labs for Last 24 Hours: Vital Signs Temp Pulse Pulse Resp BP Pulse Ox FiO2 04/01/22 19:43 97.9 F 83 20 133/84 94 L 04/01/22 16:00 84 04/01/22 16:00 97.7 F 81 16 136/73 95 04/01/22 12:00 102 H 04/01/22 11:52 97.7 F 91 H 24 127/79 96 04/01/22 10:29 84 L 04/01/22 08:00 89 04/01/22 08:00 97.9 F 83 27 H 151/76 H 92 L 04/01/22 00:00 100 H 03/31/22 20:00 100 H 04/01/22 00:00 100 H 04/01/22 04:00 90 04/01/22 04:00 99.3 F 88 20 148/81 H 95 04/01/22 00:00 98.5 F 93 H 20 154/87 H 93 L 03/31/22 22:10 90 L 12 03/31/22 20:00 99.0 F 93 H 22 161/88 H 97 Intake and Output 04/01/22 04/01/22 04/01/22 07:59 15:59 23:59 Intake Total 519 / 2067 600 / 2067 948 / 2067 Output Total 500 / 2700 2200 / 2700 Balance 19 / -633 600 / -633 -1252 / -633 Intake: Intake, Oral Amount 600 / 1060 460 / 1060 Intake, Total IV Amount 519 / 1007 488 / 1007 KCl 20mEq/100ml 100 ml @ 50 mls 100 / 100 /hr IV ONCE ONE Rx#:[id number] Ringers Solution,Lactated 1,000 519 / 907 388 / 907 ml @ 50 mls/hr IV .Q20H [facility] Rx #:[id number] Output: Output, Urine Amount 500 / 2700 2200 / 2700 Other: Weight 57.153 kg Patient Weight 04/01/22 23:59 Weight 57.153 kg Laboratory Results - last 24 hr 04/01/22 06:43: WBC 12.1 H, RBC 4.64, Hgb 14.5, Hct 45.9, MCV 99.0, MCH 31.2, MCHC 31.5 L, RDW 14.6, Plt Count 119 L, MPV 10.0, Neut % (Auto) 91.6 H, Lymph % (Auto) 5.3 L, [place] % (Auto) 2.2, Eos % (Auto) 0.3, Baso % (Auto) 0.5, Neut # (Auto) 11.1 H, Lymph # (Auto) 0.6 L, [place] # (Auto) 0.3, Eos # (Auto) 0.0, Baso # (Auto) 0.1, Total Counted 100, Neutrophils % (Manual) 89 H, Lymphocytes % (Manual) 9 L, Monocytes % (Manual) 2, Nucleated RBCs 1, Platelet Estimate Slight decrease, Hypochromasia 1+, Anisocytosis 1+, Macrocytosis 1+, Ovalocytes 1+ 04/01/22 06:43: Sodium 141, Potassium 2.6 L*, Chloride 93 L, Carbon Dioxide 41 H*, Anion Gap 9.6, BUN 24 H, Creatinine 0.70, Estimated Creat Clear 83, Estimated GFR 86, Est GFR ( Amer) 104, Glucose 93, Calcium 8.5, Magnesium 2.5 H, Total Bilirubin 0.8, AST 150 H, ALT 218 H, Alkaline Phosphatase 356 H, Total Protein 6.1 L, Albumin 3.4 L D, Globulin 2.7, Albumin/Globulin Ratio 1.3 04/01/22 16:06: Sodium 141, Potassium 2.9 L*, Chloride 96 L, Carbon Dioxide 39 H, Anion Gap 8.9, BUN 22 H, Creatinine 0.70, Estimated Creat Clear 80, Estimated GFR 86, Est GFR ( Amer) 104, Glucose 248 H D, Calcium 8.4, Total Bilirubin 0.5, AST 129 H, ALT 198 H, Alkaline Phosphatase 308 H, Total Protein 5.9 L, Albumin 3.2 L, Globulin 2.7, Albumin/Globulin Ratio 1.2 I & O for Labs for Last 24 Hours: Intake & Output 03/29/22 03/30/22 03/31/22 04/01/22 23:59 23:59 23:59 23:59 Intake Total 410 / 410 2066 / 2066 Output Total 700 / 700 2700 / 2700 Balance -290 / -290 -633 / -633 Weight 59.449 kg 57.153 kg Microbiology Reports for the Last 24 Hours: Microbiology 03/31/22 17:00 Sputum - Expectorated Sputum Gram Stain - Final Constitutional: Present no acute distress, thin and chronically ill appearing Head: Present normal inspection Comment:: Nasal cannula Neck: Present normal inspection Respiratory: Present CTA bilaterally, rhonchi and wheezes; Absent accessory muscle use Cardiac: Present Reg Rate and Rhythm and S1/S2 GI: Present distention and tenderness (female): Present deferred Extremities: Present tenderness Skin: Present intact Assessment and Plan *Assessment and plan (1) Influenzal pneumonia: Status: Acute Category: Medical Code(s): J11.00 - I
[2022-04-02] VITALS (10 sets, daily range): BP systolic 124–158; BP diastolic 63–79; PULSE 65–81; RESP 18–20; TEMP 36.4–36.7; O2SAT 91–97; BMI 22.8
--- NOTE | 2022-04-02 04:36 | PC.NURSE ---
pt has remained on 4L NC t/o shift, no complaints of SOA, O2 sats 94-95%, pt states she feels much better than yesterday, HR 75-83, family at bedside
[2022-04-02 06:48] LABS: Basophils # 0.1 K/mm3 (0-0.2); Basophils % 0.7 % (0.1-2.0); Eosinophils # 0.1 K/mm3 (0.0-0.4); Eosinophils % 0.7 % (0.1-12.0); Hematocrit 43.6 % (37.0-47.0); Hemoglobin 13.9 g/dL (12.2-16.2); Lymphocytes # 0.5 K/mm3 (0.7-4.5); Mean Corpuscular HGB Conc 31.9 g/dL (31.8-35.4); Mean Corpuscular Hemoglobin 31.3 pg (27.0-31.2); Mean Corpuscular Volume 98.1 fl (81-99); Mean Platelet Volume 10.3 fl (7.4-10.4); Monocytes # 0.3 K/mm3 (0.1-1.0); Neutrophils # 9.6 K/mm3 (1.8-7.8); Neutrophils % 90.6 % (37.0-80.0); Platelet Count 111 K/mm3 (142-424); Red Blood Count 4.45 M/mm3 (4.20-5.40); Red Cell Distribution Width 14.5 % (11.5-17.5); White Blood Count 10.6 K/mm3 (4.8-10.8)
[2022-04-02 06:51] LABS: MANUAL DIFFERENTIAL MANUAL DIFFERENTIAL (MANUAL DIFF)
[2022-04-02 06:59] LABS: Alanine Aminotransferase 158 U/L (12-78); Albumin/Globulin Ratio 1.1 (1.1-1.8); Alkaline Phosphatase 321 U/L (38-126); Aspartate Amino Transferase 110 U/L (14-36); Bilirubin,Total 0.5 mg/dl (0.2-1.3); Blood Urea Nitrogen 22 mg/dl (7-17); Calcium 8.5 mg/dl (8.4-10.2); Carbon Dioxide 36 mmol/L (22.0-30.0); Chloride 93 mmol/L (98-107); Creatinine Clearance Estimated 115 mL/min (50-200); Estimated Glomerular Filt Rate 127 ml/min (>60); GFR (African American) 154 ML/MIN (>60); Globulin 2.7 g/dL (1.3-3.2); Glucose 126 mg/dl (74-100); Magnesium 2.3 mg/dl (1.6-2.3); Potassium 3.1 mmoL/L (3.5-5.1); Total Protein,Serum 5.7 g/dl (6.3-8.2)
[2022-04-02 07:05] LABS: Phosphorous 1.6 mg/dl (2.5-4.5)
[2022-04-02 07:47] LABS: Lymphocytes % 9 % (10-50); Monocytes % 4 % (2-9); Neutrophils % 87 % (42-76); Total Cells Counted 100
[2022-04-02 07:48] LABS: Platelet Estimate Slight Decrease; RBC Morphology Normal
[2022-04-02 10:33] LABS: Anion Gap 10.1 mEq/L (5-15); Sodium 136 mmol/L (136-145)
--- NOTE | 2022-04-02 10:39 | HMH.PTEV ---
Physical Therapy Evaluation Rehab PT IP Evaluation Start: 04/02/22 08:51 Freq: ONCE Status: Active Protocol: Document 04/02/22 10:34 JASON (Rec: 04/02/22 10:39 [place] [id number]) Subjective/History History History 56 yowf adm to [facility] with increased SOA, Flu A+, PNA. She has hx of likely malignancy with multiple areas of mets. She reports she lives with family, plenty of assistance available, and is generally independent with all mobility. Subjective Subjective No c/o this am, feelign much better today. Oxygen saturation remains >90% throughout treatment with oxygen on via NC at all times. Rehab PT IP Eval Objective Appearance Patient Behavior Appropriate Patient Orientation Person,Place,Time Difficulty following instructions none Speech Pattern Clear Ambulation Patient Able to Ambulate Yes Ambulation Observation IP General Gait Pattern Observation No Deviations/Normal Ambulation Distance (feet) 40 Ambulation Assistive Device None Ambulation Ability Supervision/Stand by Balance Ability to Arise Able, w/o using arms Sitting Balance Steady, safe Standing Balance Narrow stance w/o support Dynamic Sitting Balance Ability Normal Dynamic Standing Balance Ability Good Transfers Bed Transfer Ability Supervision/Stand by Chair Transfer Ability Supervision/Stand by Sit to Stand Bed Transfer Ability Supervision/Stand by Sit to Stand Chair Transfer Ability Supervision/Stand by Rehab PT IP prob,goals,plan Problems Date of Evaluation: 04/02/22 Discharge Plan PT Discharge Plan Pt is currently independent with all mobility and has no inpatient therapy needs. Recommend [facility] for home use and possible hospital bed if she is unable to lay flat due to oxygen requirements. G -code Required No Eval Complexity Eval Charge Codes 46684 - Moderate Complexity PHYSICIAN CERTIFICATION: I certify the specified therapy services for Kimberly Prasad are required, authorized, and reviewed every 30 days.
--- NOTE | 2022-04-02 11:48 | PC.NURSE ---
Pt went off the floor with daughter at 1054 and returned 1148. She went outside to enjoy fresh air. 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
--- NOTE | 2022-04-02 15:21 | CARE MANAGER ---
Spoke with patient regarding discharge planning. Patient is currently on supplemental O2 per [place]. If this is needed, it can be ordered from [facility] and staff is aware of process. No other known needs.
--- NOTE | 2022-04-02 15:31 | EXP.ACUTE.PN ---
Subjective *Date: 04/02/22 *Time: 15:31 Interval history: No acute events overnight. Overall she is doing better her oxygen requirement has decreased and currently comfortable on 4 L nasal cannula. She has been ambulating around the room and will ambulate throughout the halls today. Feels like she is doing better and will be ready to go home possibly tomorrow. Edema has improved Medical Exam Vital signs and Labs for Last 24 Hours: Vital Signs Temp Pulse Pulse Resp BP Pulse Ox 04/02/22 12:04 80 04/02/22 12:00 97.9 F 77 18 149/79 H 96 04/02/22 08:00 97.9 F 81 18 124/74 91 L 04/02/22 04:00 97.9 F 76 19 149/68 H 95 04/02/22 04:00 65 04/02/22 00:00 75 04/01/22 20:00 95 H 04/01/22 23:48 98.4 F 75 20 130/80 94 L 04/01/22 20:00 80 94 L 04/01/22 19:43 97.9 F 83 20 133/84 94 L 04/01/22 16:00 84 04/01/22 16:00 97.7 F 81 16 136/73 95 Intake and Output 04/01/22 04/02/22 04/02/22 23:59 07:59 15:59 Intake Total 948 / 2067 616 / 976 360 / 976 Output Total 2650 / 3150 100 / 180 80 / 180 Balance -1702 / -1083 516 / 796 280 / 796 Intake: Intake, Oral Amount 460 / 1060 360 / 360 Intake, Total IV Amount 488 / 1007 616 / 616 KCl 20mEq/100ml 100 ml @ 50 mls 100 / 100 /hr IV ONCE ONE Rx#:[id number] Ringers Solution,Lactated 1,000 388 / 907 616 / 616 ml @ 50 mls/hr IV .Q20H [facility] Rx #:[id number] Output: Output, Urine Amount 2650 / 3150 100 / 180 80 / 180 Other: Number of Unmeasured Voids 1 Weight 58.542 kg Patient Weight 04/02/22 23:59 Weight 58.542 kg Laboratory Results - last 24 hr 04/01/22 16:06: Sodium 141, Potassium 2.9 L*, Chloride 96 L, Carbon Dioxide 39 H, Anion Gap 8.9, BUN 22 H, Creatinine 0.70, Estimated Creat Clear 80, Estimated GFR 86, Est GFR ( Amer) 104, Glucose 248 H D, Calcium 8.4, Total Bilirubin 0.5, AST 129 H, ALT 198 H, Alkaline Phosphatase 308 H, Total Protein 5.9 L, Albumin 3.2 L, Globulin 2.7, Albumin/Globulin Ratio 1.2 04/02/22 06:42: WBC 10.6, RBC 4.45, Hgb 13.9, Hct 43.6, MCV 98.1, MCH 31.3 H, MCHC 31.9, RDW 14.5, Plt Count 111 L, MPV 10.3, Neut % (Auto) 90.6 H, Lymph % (Auto) 5.0 L, [place] % (Auto) 3.0, Eos % (Auto) 0.7, Baso % (Auto) 0.7, Neut # (Auto) 9.6 H, Lymph # (Auto) 0.5 L, [place] # (Auto) 0.3, Eos # (Auto) 0.1, Baso # (Auto) 0.1, Total Counted 100, Neutrophils % (Manual) 87 H, Lymphocytes % (Manual) 9 L, Monocytes % (Manual) 4, Platelet Estimate Slight decrease, RBC Morphology Normal 04/02/22 06:42: Sodium 136, Potassium 3.1 L, Chloride 93 L, Carbon Dioxide 36 H, Anion Gap 10.1, BUN 22 H, Creatinine 0.50 L D, Estimated Creat Clear 115, Estimated GFR 127, Est GFR ( Amer) 154 D, Glucose 126 H D, Calcium 8.5, Phosphorus 1.6 L, Magnesium 2.3, Total Bilirubin 0.5, AST 110 H, ALT 158 H, Alkaline Phosphatase 321 H, Total Protein 5.7 L, Albumin 3.0 L, Globulin 2.7, Albumin/Globulin Ratio 1.1 I & O for Labs for Last 24 Hours: Intake & Output 03/30/22 03/31/22 04/01/22 04/02/22 23:59 23:59 23:59 23:59 Intake Total 410 / 410 2067 / 2067 976 / 976 Output Total 700 / 700 3150 / 3150 180 / 180 Balance -290 / -290 -1083 / -1083 796 / 796 Weight 59.449 kg 57.153 kg 58.542 kg Microbiology Reports for the Last 24 Hours: Microbiology 03/31/22 17:00 Sputum - Expectorated Sputum Gram Stain - Final 03/31/22 17:00 Sputum - Expectorated Sputum Sputum Culture - Preliminary Head: Present normal inspection Neck: Present normal inspection Respiratory: Present rhonchi and wheezes; Absent accessory muscle use or respiratory distress Cardiac: Present Reg Rate and Rhythm and S1/S2 GI: Present soft and distention; Absent tenderness Rectal (female): Present deferred (female): Present deferred Extremities: Present normal inspection and edema Skin: Present intact and cyanosis Assessment and Plan *Assessment and plan (1) Influenzal pneumonia: Status: Acute
--- NOTE | 2022-04-02 19:31 | PC.NURSE ---
Pt is A/Ox4. She has tolerated diet well. She left the floor for about an hour with daughter. She signed a form to leave the floor. She ambulated from steward/stewardess night to room. She complained of slight tenderness of abdomen. She has been on 4L NC.
[2022-04-03] VITALS (11 sets, daily range): BP systolic 137–159; BP diastolic 64–78; PULSE 60–90; RESP 16–24; TEMP 36.4–36.6; O2SAT 91–96; BMI 22.8
--- NOTE | 2022-04-03 05:28 | PC.NURSE ---
NO ACUTE CHANGES SINCE PREVIOUS ASSESSMENT. LUNG SOUNDS REMAIN WHEEZY. PT REMAINS ON 4L NASAL CANNULA. PT C/O NASAL DRYNESS ONCE THIS SHIFT AND REQUESTED HUMIDIFICATION BE PLACED ON HER O2. PT HAS HAD NO FURTHER C/O NASAL DRYNESS. SHE HAS AMBULATED TO THE BATHROOM WITH HELP FROM HER DAUGHTER. NO C/O PAIN, SOB, OR N/V/D. CALL [facility] WITHIN REACH.
[2022-04-03 08:00] LABS: Basophils # 0.1 K/mm3 (0-0.2); Basophils % 0.6 % (0.1-2.0); Eosinophils % 0.3 % (0.1-12.0); Hematocrit 45.9 % (37.0-47.0); Hemoglobin 14.6 g/dL (12.2-16.2); Lymphocytes # 0.7 K/mm3 (0.7-4.5); Lymphocytes % 5.2 % (10-50); Mean Corpuscular HGB Conc 31.8 g/dL (31.8-35.4); Mean Corpuscular Hemoglobin 31.1 pg (27.0-31.2); Mean Corpuscular Volume 97.7 fl (81-99); Mean Platelet Volume 10.2 fl (7.4-10.4); Monocytes # 0.4 K/mm3 (0.1-1.0); Neutrophils # 11.6 K/mm3 (1.8-7.8); Neutrophils % 90.9 % (37.0-80.0); Platelet Count 122 K/mm3 (142-424); Red Cell Distribution Width 14.6 % (11.5-17.5); White Blood Count 12.8 K/mm3 (4.8-10.8)
[2022-04-03 08:02] LABS: MANUAL DIFFERENTIAL MANUAL DIFFERENTIAL (MANUAL DIFF)
[2022-04-03 08:08] LABS: Alanine Aminotransferase 167 U/L (12-78); Albumin Level 3.4 g/dl (3.5-5.0); Albumin/Globulin Ratio 1.3 (1.1-1.8); Alkaline Phosphatase 356 U/L (38-126); Anion Gap 18.5 mEq/L (5-15); Aspartate Amino Transferase 124 U/L (14-36); Bilirubin,Total 0.6 mg/dl (0.2-1.3); Blood Urea Nitrogen 23 mg/dl (7-17); Carbon Dioxide 32 mmol/L (22.0-30.0); Chloride 96 mmol/L (98-107); Creatinine Clearance Estimated 96 mL/min (50-200); Estimated Glomerular Filt Rate 103 ml/min (>60); GFR (African American) 125 ML/MIN (>60); Globulin 2.6 g/dL (1.3-3.2); Glucose 150 mg/dl (74-100); Potassium 3.5 mmoL/L (3.5-5.1); Sodium 143 mmol/L (136-145)
[2022-04-03 08:10] LABS: Phosphorous 1.9 mg/dl (2.5-4.5)
[2022-04-03 08:14] LABS: Magnesium 2.1 mg/dl (1.6-2.3)
--- NOTE | 2022-04-03 08:15 | PC.NURSE ---
Spoke with Dr. Greg Dacosta about critical phosphatase lab.
[2022-04-03 08:23] LABS: Lymphocytes % 5 % (10-50); Monocytes % 2 % (2-9); Neutrophils % 93 % (42-76); Total Cells Counted 100
[2022-04-03 08:24] LABS: Platelet Estimate Slight Decrease; RBC Morphology Normal
[2022-04-03 08:43] LABS: Sodium, Urine 25 mmol/L (Not Estab.)
--- NOTE | 2022-04-03 09:48 | EXP.DC.SUM ---
General Admission date:: 03/31/22 Discharge date: 04/03/22 HPI HPI HPI: Ms. 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 She presented to her PCP today with complaint of fever and shortness of breath. This began about a day ago. She originally was coming to the hospital today for CT-guided liver biopsy and was declined due to her temperature. Has been going through work-up to diagnose suspected malignancy with liver lesions, lung nodules, mediastinal lymph nodes. She has no significant other past medical history per her report. Does smoke about a pack a day. Appears chronically ill on exam. Complains of cough and shortness of breath. No nausea or vomiting. No chest pain. Tolerating 3 L nasal cannula at this time. Review from PCP note today gives more extensive history of recent work-up. See as follows Usual state of health until about 3 weeks ago she was pulling her [id number] up in bed and she felt a pain in her rib cage since that time she has had pain and swelling in her abdomen and swelling in her bilateral lower extremities she denies either of which being a problem prior to this.? She went to the ER on 03/24/2022.? In the ER her lab work revealed white blood cell of 19.6, AST 98 ALT 232 alkaline phosphatase 228, CT of the abdomen revealed hepatomegaly with innumerable ring-enhancing liver lesions measuring up to 3 cm and described as highly suspicious for malignancy CT of the lungs revealed mild to moderate mediastinal hilar lymphadenopathy possibly metastatic in nature and 2 pulmonary nodules in the left lower lobe measuring 7 cm.? Patient states that the swelling in her abdomen and legs is uncomfortable however she was advised not to take Tylenol and she is allergic to ibuprofen stating that it results in a rash.? She was seen here on 03/27/2022 and started on Lasix with no improvement in edema.? She saw Dr. Gomez on 03/28/[address]-guided liver biopsy and PET scan which are pending Exam Data for Last 24 hours Vital signs and Labs for Last 24 Hours: Temp Pulse Resp BP Pulse Ox FiO2 97.6 F 78 18 140/65 92 L 12 04/03/22 08:00 04/03/22 08:00 04/03/22 08:00 04/03/22 08:00 04/03/22 08:00 03/31/22 22:10 Laboratory Results - last 24 hr 04/02/22 06:42: Sodium 136, Anion Gap 10.1 04/02/22 10:25: Urine Sodium 25 04/03/22 07:42: WBC 12.8 H, RBC 4.70, Hgb 14.6, Hct 45.9, MCV 97.7, MCH 31.1, MCHC 31.8, RDW 14.6, Plt Count 122 L, MPV 10.2, Neut % (Auto) 90.9 H, Lymph % (Auto) 5.2 L, [place] % (Auto) 3.0, Eos % (Auto) 0.3, Baso % (Auto) 0.6, Neut # (Auto) 11.6 H, Lymph # (Auto) 0.7, [place] # (Auto) 0.4, Eos # (Auto) 0.0, Baso # (Auto) 0.1, Total Counted 100, Neutrophils % (Manual) 93 H, Lymphocytes % (Manual) 5 L, Monocytes % (Manual) 2, Platelet Estimate Slight decrease, RBC Morphology Normal 04/03/22 07:42: Sodium 143, Potassium 3.5, Chloride 96 L, Carbon Dioxide 32 H, Anion Gap 18.5 H, BUN 23 H, Creatinine 0.60, Estimated Creat Clear 96, Estimated GFR 103, Est GFR ( Amer) 125, Glucose 150 H, Calcium 9.0, Phosphorus 1.9 L, Total Bilirubin 0.6, AST 124 H, ALT 167 H, Alkaline Phosphatase 356 H, Total Protein 6.0 L, Albumin 3.4 L D, Globulin 2.6, Albumin/Globulin Ratio 1.3 04/03/22 07:42: Magnesium 2.1 I & O for Last 24 hours: Intake & Output 03/31/22 04/01/22 04/02/22 04/03/22 23:59 23:59 23:59 23:59 Intake Total 410 / 410 2067 / 2067 1216 / 1216 240 / 240 Output Total 700 / 700 3150 / 3150 180 / 180 100 / 100 Balance -290 / -290 -1083 / -1083 1036 / 1036 140 / 140 Weight 59.449 kg 57.153 kg 58.542 kg 58.513 kg Microbiology Reports for the Last 24 Hours: Microbiology 03/31/22 17:00 Sputum - Expectorated Sputum Gram Stain - Final 03/31/22 17:00 Sputum - Expectorated Sputum Sputum Culture - Final Normal Respiratory Paula Constitutional Constitutional: no acute distress, thin and
--- NOTE | 2022-04-03 10:35 | PC.NURSE ---
Pt and daughter went off the floor for fresh air
--- NOTE | 2022-04-03 11:22 | PC.NURSE ---
Pt and daughter returned to the floor.
--- NOTE | 2022-04-03 12:56 | EXP.ACUTE.PN ---
Subjective *Date: 04/03/22 *Time: 12:56 Interval history: No acute events overnight. This morning patient continues to feel like she is clinically improving. Discussed continued oxygen requirement and hesitance to discharge. Patient is agreeable we will consult pulm and plan for discharge tomorrow. Medical Exam Vital signs and Labs for Last 24 Hours: Vital Signs Temp Pulse Pulse Resp BP Pulse Ox 04/03/22 08:00 74 04/03/22 11:37 97.5 F L 66 22 159/78 H 96 04/03/22 08:00 97.6 F 78 18 140/65 92 L 04/03/22 04:00 60 04/03/22 04:00 97.8 F 68 16 140/64 93 L 04/02/22 23:55 93 L 04/03/22 00:00 70 04/02/22 23:41 98.1 F 65 18 150/63 H 97 04/02/22 20:00 70 04/02/22 20:00 97.5 F L 69 20 151/74 H 94 L 04/02/22 17:48 70 04/02/22 15:56 98.0 F 66 18 158/78 H 96 Intake and Output 04/02/22 04/03/22 04/03/22 23:59 07:59 15:59 Intake Total 240 / 1216 240 / 240 Output Total 0 / 180 100 / 100 Balance 240 / 1036 -100 / 140 240 / 140 Intake: Intake, Oral Amount 240 / 600 240 / 240 Output: Output, Urine Amount 0 / 180 100 / 100 Other: Number of Unmeasured Voids 2 0 Weight 58.513 kg Patient Weight 04/03/22 23:59 Weight 58.513 kg Laboratory Results - last 24 hr 04/02/22 10:25: Urine Sodium 25 04/03/22 07:42: WBC 12.8 H, RBC 4.70, Hgb 14.6, Hct 45.9, MCV 97.7, MCH 31.1, MCHC 31.8, RDW 14.6, Plt Count 122 L, MPV 10.2, Neut % (Auto) 90.9 H, Lymph % (Auto) 5.2 L, [place] % (Auto) 3.0, Eos % (Auto) 0.3, Baso % (Auto) 0.6, Neut # (Auto) 11.6 H, Lymph # (Auto) 0.7, [place] # (Auto) 0.4, Eos # (Auto) 0.0, Baso # (Auto) 0.1, Total Counted 100, Neutrophils % (Manual) 93 H, Lymphocytes % (Manual) 5 L, Monocytes % (Manual) 2, Platelet Estimate Slight decrease, RBC Morphology Normal 04/03/22 07:42: Sodium 143, Potassium 3.5, Chloride 96 L, Carbon Dioxide 32 H, Anion Gap 18.5 H, BUN 23 H, Creatinine 0.60, Estimated Creat Clear 96, Estimated GFR 103, Est GFR ( Amer) 125, Glucose 150 H, Calcium 9.0, Phosphorus 1.9 L, Total Bilirubin 0.6, AST 124 H, ALT 167 H, Alkaline Phosphatase 356 H, Total Protein 6.0 L, Albumin 3.4 L D, Globulin 2.6, Albumin/Globulin Ratio 1.3 04/03/22 07:42: Magnesium 2.1 I & O for Labs for Last 24 Hours: Intake & Output 03/31/22 04/01/22 04/02/22 04/03/22 23:59 23:59 23:59 23:59 Intake Total 410 / 410 2067 / 2067 1216 / 1216 240 / 240 Output Total 700 / 700 3150 / 3150 180 / 180 100 / 100 Balance -290 / -290 -1083 / -1083 1036 / 1036 140 / 140 Weight 59.449 kg 57.153 kg 58.542 kg 58.513 kg Microbiology Reports for the Last 24 Hours: Microbiology 03/31/22 17:00 Sputum - Expectorated Sputum Gram Stain - Final 03/31/22 17:00 Sputum - Expectorated Sputum Sputum Culture - Final Normal Respiratory Paula Head: Present normocephalic Neck: Present normal inspection Respiratory: Present rhonchi and wheezes; Absent accessory muscle use Comment:: On nasal cannula Cardiac: Present Reg Rate and Rhythm GI: Present soft Rectal (female): Present deferred (female): Present deferred Extremities: Present normal inspection Skin: Present intact and dry Assessment and Plan *Assessment and plan (1) Influenzal pneumonia: Status: Acute Category: Medical Code(s): J11.00 - Influenza due to unidentified influenza virus with unspecified type of pneumonia (2) Secondary bacterial pneumonia: Status: Acute Category: Medical Code(s): J15.9 - Unspecified bacterial pneumonia (3) Acute hypoxemic respiratory failure: Status: Acute Category: Medical Code(s): J96.01 - Acute respiratory failure with hypoxia (4) Hypokalemia: Status: Acute Category: Medical Code(s): E87.6 - Hypokalemia (5) Disseminated malignancy of unknown primary: Status: Acute Category: Medical Code(s): C80.0 - Disseminated malignant allen
--- NOTE | 2022-04-03 13:02 | P.PN_ITS ---
Subjective *Date: 04/03/22 *Time: 13:02 Medical Exam Vital signs and Labs for Last 24 Hours: Vital Signs Temp Pulse Pulse Resp BP Pulse Ox 04/03/22 08:00 74 04/03/22 11:37 97.5 F L 66 22 159/78 H 96 04/03/22 08:00 97.6 F 78 18 140/65 92 L 04/03/22 04:00 60 04/03/22 04:00 97.8 F 68 16 140/64 93 L 04/02/22 23:55 93 L 04/03/22 00:00 70 04/02/22 23:41 98.1 F 65 18 150/63 H 97 04/02/22 20:00 70 04/02/22 20:00 97.5 F L 69 20 151/74 H 94 L 04/02/22 17:48 70 04/02/22 15:56 98.0 F 66 18 158/78 H 96 Intake and Output 04/02/22 04/03/22 04/03/22 23:59 07:59 15:59 Intake Total 240 / 1216 240 / 240 Output Total 0 / 180 100 / 100 Balance 240 / 1036 -100 / 140 240 / 140 Intake: Intake, Oral Amount 240 / 600 240 / 240 Output: Output, Urine Amount 0 / 180 100 / 100 Other: Number of Unmeasured Voids 2 0 Weight 58.513 kg Patient Weight 04/03/22 23:59 Weight 58.513 kg Laboratory Results - last 24 hr 04/02/22 10:25: Urine Sodium 25 04/03/22 07:42: WBC 12.8 H, RBC 4.70, Hgb 14.6, Hct 45.9, MCV 97.7, MCH 31.1, MCHC 31.8, RDW 14.6, Plt Count 122 L, MPV 10.2, Neut % (Auto) 90.9 H, Lymph % (Auto) 5.2 L, [place] % (Auto) 3.0, Eos % (Auto) 0.3, Baso % (Auto) 0.6, Neut # (Auto) 11.6 H, Lymph # (Auto) 0.7, [place] # (Auto) 0.4, Eos # (Auto) 0.0, Baso # (Auto) 0.1, Total Counted 100, Neutrophils % (Manual) 93 H, Lymphocytes % (Manual) 5 L, Monocytes % (Manual) 2, Platelet Estimate Slight decrease, RBC Morphology Normal 04/03/22 07:42: Sodium 143, Potassium 3.5, Chloride 96 L, Carbon Dioxide 32 H, Anion Gap 18.5 H, BUN 23 H, Creatinine 0.60, Estimated Creat Clear 96, Estimated GFR 103, Est GFR ( Amer) 125, Glucose 150 H, Calcium 9.0, Phosphorus 1.9 L, Total Bilirubin 0.6, AST 124 H, ALT 167 H, Alkaline Phosphatase 356 H, Total Protein 6.0 L, Albumin 3.4 L D, Globulin 2.6, Albumin/Globulin Ratio 1.3 04/03/22 07:42: Magnesium 2.1 I & O for Labs for Last 24 Hours: Intake & Output 03/31/22 04/01/22 04/02/22 04/03/22 23:59 23:59 23:59 23:59 Intake Total 410 / 410 2067 / 2067 1216 / 1216 240 / 240 Output Total 700 / 700 3150 / 3150 180 / 180 100 / 100 Balance -290 / -290 -1083 / -1083 1036 / 1036 140 / 140 Weight 59.449 kg 57.153 kg 58.542 kg 58.513 kg Microbiology Reports for the Last 24 Hours: Microbiology 03/31/22 17:00 Sputum - Expectorated Sputum Gram Stain - Final 03/31/22 17:00 Sputum - Expectorated Sputum Sputum Culture - Final Normal Respiratory Paula
--- NOTE | 2022-04-03 20:47 | PC.NURSE ---
Pt is A/Ox4. She has been at 4LNC stable. She went outside with her daughter off the floor times are stated in previous note. She has not complained of pain or needed. She ambulated in her room with her daughter. She ambulated from floor doors to her room. She has tolerated diet well.
[2022-04-03 23:08] LABS: Osmolality, Urine 791 mOsmol/kg (.)
[2022-04-04] VITALS: BP 148/76; PULSE 70; PULSE 78; RESP 20; TEMP 36.4; O2SAT 96
[2022-04-04 04:00] VITALS: BP 154/83; PULSE 76; RESP 20; TEMP 36.4; O2SAT 94
--- NOTE | 2022-04-04 04:22 | PC.NURSE ---
Addendum entered by Ginna Farooq RN 04/04/22 04:29: abdomen round, firm in upper quads, and tender to touch in RUQ. +2 pitting edema noted to BLE. Original Note: pt remains on 4L NC and is tolerating well with o2 sats >90%. Rhonchi noted in lung bases. she has been using bedside commode with standby assist. tolerates well. Pt stated she was jittery from the albuterol breathing treatments she was receiving, and stated she did not want the albuterol anymore. was notified and order was changed. no other complaints this shift.
[2022-04-04 04:34] VITALS: BMI 23.5
[2022-04-04 06:01] VITALS: PULSE 70
[2022-04-04 06:05] VITALS: PULSE 81; PULSE 83; O2SAT 93
[2022-04-04 07:42] LABS: Basophils # 0.1 K/mm3 (0-0.2); Eosinophils # 0.1 K/mm3 (0.0-0.4); Eosinophils % 0.6 % (0.1-12.0); Hematocrit 43.1 % (37.0-47.0); Hemoglobin 13.6 g/dL (12.2-16.2); Lymphocytes # 0.6 K/mm3 (0.7-4.5); Lymphocytes % 4.7 % (10-50); Mean Corpuscular HGB Conc 31.6 g/dL (31.8-35.4); Mean Corpuscular Hemoglobin 30.9 pg (27.0-31.2); Mean Corpuscular Volume 97.8 fl (81-99); Mean Platelet Volume 9.7 fl (7.4-10.4); Monocytes # 0.3 K/mm3 (0.1-1.0); Monocytes % 2.6 % (1.7-9.3); Neutrophils # 11.9 K/mm3 (1.8-7.8); Neutrophils % 91.1 % (37.0-80.0); Platelet Count 131 K/mm3 (142-424); Red Blood Count 4.41 M/mm3 (4.20-5.40); Red Cell Distribution Width 14.5 % (11.5-17.5)
[2022-04-04 07:45] LABS: MANUAL DIFFERENTIAL MANUAL DIFFERENTIAL (MANUAL DIFF)
[2022-04-04 07:55] LABS: Lymphocytes % 8 % (10-50); Monocytes % 7 % (2-9); Neutrophils % 85 % (42-76); Platelet Estimate Slight Decrease; RBC Morphology Normal; Total Cells Counted 100
[2022-04-04 08:00] VITALS: BP 159/65; PULSE 83; RESP 20; TEMP 36.9; O2SAT 96
[2022-04-04 08:04] LABS: Alanine Aminotransferase 171 U/L (12-78); Albumin Level 3.1 g/dl (3.5-5.0); Albumin/Globulin Ratio 1.2 (1.1-1.8); Alkaline Phosphatase 361 U/L (38-126); Anion Gap 13.3 mEq/L (5-15); Aspartate Amino Transferase 124 U/L (14-36); Bilirubin,Total 0.5 mg/dl (0.2-1.3); Blood Urea Nitrogen 15 mg/dl (7-17); Calcium 8.5 mg/dl (8.4-10.2); Carbon Dioxide 33 mmol/L (22.0-30.0); Chloride 99 mmol/L (98-107); Creatinine Clearance Estimated 98 mL/min (50-200); Estimated Glomerular Filt Rate 103 ml/min (>60); GFR (African American) 125 ML/MIN (>60); Globulin 2.6 g/dL (1.3-3.2); Glucose 121 mg/dl (74-100); Potassium 3.3 mmoL/L (3.5-5.1); Sodium 142 mmol/L (136-145); Total Protein,Serum 5.7 g/dl (6.3-8.2)
[2022-04-04 08:26] LABS: Phosphorous 1.9 mg/dl (2.5-4.5)
[2022-04-04 09:22] LABS: Magnesium 1.8 mg/dl (1.6-2.3)
--- NOTE | 2022-04-04 09:46 | EXP.PULM.CON ---
History of Present Illness History of present illness: Elza<damari Prasad is a 56-year-old female greater than [id number]-smtx smoking history recently presented to the PCP abdominal pain found to have multiple liver lesions presented for a biopsy found to be febrile admitted to the hospital found to be having new onset hypoxemic COVID-19 influenza pneumonia and pulmonary was called for further evaluation [facility] Medical History (Updated 04/04/22 @ 13:54 by Mariam Guevara MD) Acute respiratory failure with hypoxia Hilar lymphadenopathy Mediastinal lymphadenopathy Multiple lung nodules on CT Pharyngitis Seasonal allergies Surgical History History of cholecystectomy History of total hysterectomy History of tubal ligation Family History Diabetes Father Hyperlipidemia Father Mother Heart attack Mother Hypertension Father Mother Social History Smoking Status: Former smoker alcohol intake: never substance use type: denies use current occupational status: unemployed Travel in the last 8 weeks: None marital status: single number of children: 2 Review of Systems Constitutional Constitutional: Reports anorexia, Reports body ache(s), Reports fatigue and Reports lethargy Eyes Eyes: Denies eye discharge, Denies dry eyes, Denies irritation and Denies itchy eyes ENT Ears, Nose, Mouth, and Throat: Denies epistaxis, Denies facial pain, Denies lip swelling and Denies throat swelling *Cardiovascular Cardiovascular: Reports dyspnea and Reports dyspnea on exertion *Respiratory Respiratory: Reports chest congestion, Reports cough, Reports dyspnea, Reports dyspnea on exertion, Denies excessive phlegm production and Reports wheezing *Gastrointestinal Gastrointestinal: Denies abdominal pain, Denies belching, Denies cramping and Reports nausea *Musculoskeletal Musculoskeletal: Reports back pain, Reports myalgias and Reports other (No small joint swelling or Pain) Psychiatric Psychiatric: Denies homicidal ideation and Denies suicidal ideation Endocrine Endocrine: Reports fatigue and Denies heat intolerance Hematologic/Lymphatic Hematologic/Lymphatic: Denies easy bleeding and Denies lymphadenopathy Allergic/Immunologic Allergic/Immunologic: Denies itchy eyes, Denies lip swelling, Denies throat swelling and Reports wheezing Pulmonology Exam Inpatient Vital signs and Labs for Last 24 Hours: Temp Pulse Resp BP Pulse Ox FiO2 98.5 F 83 20 159/65 H 96 40 04/04/22 08:00 04/04/22 08:00 04/04/22 08:00 04/04/22 08:00 04/04/22 08:00 04/03/22 20:00 Laboratory Results - last 24 hr 04/02/22 10:25: Urine Osmolality 791 04/04/22 07:29: WBC 13.0 H, RBC 4.41, Hgb 13.6, Hct 43.1, MCV 97.8, MCH 30.9, MCHC 31.6 L, RDW 14.5, Plt Count 131 L, MPV 9.7, Neut % (Auto) 91.1 H, Lymph % (Auto) 4.7 L, [place] % (Auto) 2.6, Eos % (Auto) 0.6, Baso % (Auto) 1.0, Neut # (Auto) 11.9 H, Lymph # (Auto) 0.6 L, [place] # (Auto) 0.3, Eos # (Auto) 0.1, Baso # (Auto) 0.1, Total Counted 100, Neutrophils % (Manual) 85 H, Lymphocytes % (Manual) 8 L, Monocytes % (Manual) 7, Platelet Estimate Slight decrease, RBC Morphology Normal 04/04/22 07:29: Sodium 142, Potassium 3.3 L, Chloride 99, Carbon Dioxide 33 H, Anion Gap 13.3, BUN 15 D, Creatinine 0.60, Estimated Creat Clear 98, Estimated GFR 103, Est GFR ( Amer) 125, Glucose 121 H, Calcium 8.5, Phosphorus 1.9 L, Total Bilirubin 0.5, AST 124 H, ALT 171 H, Alkaline Phosphatase 361 H, Total Protein 5.7 L, Albumin 3.1 L, Globulin 2.6, Albumin/Globulin Ratio 1.2 04/04/22 07:29: Magnesium 1.8 D I & O for Labs for Last 24 Hours: Intake & Output 04/01/22 04/02/22 04/03/22 04/04/22 23:59 23:59 23:59 23:59 Intake Total 2066 / 2066 1216 / 1216 840 / 840 2206 / 2206 Output Total 3150 / 3150 180 / 180 1550 / 1550 250 / 250 Balance -1083 / -1083 1036 / 1036 -710 / -710 1
--- NOTE | 2022-04-04 11:50 | EXP.DC.SUM ---
General Admission date:: 03/31/22 Discharge date: 04/04/22 HPI HPI HPI: Ms. 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 She presented to her PCP today with complaint of fever and shortness of breath. This began about a day ago. She originally was coming to the hospital today for CT-guided liver biopsy and was declined due to her temperature. Has been going through work-up to diagnose suspected malignancy with liver lesions, lung nodules, mediastinal lymph nodes. She has no significant other past medical history per her report. Does smoke about a pack a day. Appears chronically ill on exam. Complains of cough and shortness of breath. No nausea or vomiting. No chest pain. Tolerating 3 L nasal cannula at this time. Review from PCP note today gives more extensive history of recent work-up. See as follows Usual state of health until about 3 weeks ago she was pulling her evjxoi-ca-sde up in bed and she felt a pain in her rib cage since that time she has had pain and swelling in her abdomen and swelling in her bilateral lower extremities she denies either of which being a problem prior to this.? She went to the ER on 03/24/2022.? In the ER her lab work revealed white blood cell of 19.6, AST 98 ALT 232 alkaline phosphatase 228, CT of the abdomen revealed hepatomegaly with innumerable ring-enhancing liver lesions measuring up to 3 cm and described as highly suspicious for malignancy CT of the lungs revealed mild to moderate mediastinal hilar lymphadenopathy possibly metastatic in nature and 2 pulmonary nodules in the left lower lobe measuring 7 cm.? Patient states that the swelling in her abdomen and legs is uncomfortable however she was advised not to take Tylenol and she is allergic to ibuprofen stating that it results in a rash.? She was seen here on 03/27/2022 and started on Lasix with no improvement in edema.? She saw Dr. Gomez on 03/28/[address]-guided liver biopsy and PET scan which are pending Hospital Course Hospital Course Hospital Course: Patient was admitted for acute hypoxic respiratory failure secondary to viral influenza infection with a new oxygen requirement. Patient was started on Tamiflu and had mild clinical improvement however remained tachypneic and hypoxemic so a CT PE was ordered. CT demonstrated no acute thrombus but there was evidence of bilateral basal bacterial pneumonia and was subsequently started on IV antibiotics. Patient had clinical improvement with chest PT, Guaifenesin and continued antibiotics. IV antibiotics were transitioned to p.o. patient continued to improve. Pulmonology was consulted for consistent oxygen requirement. Due to consistent ascites from hepatic metastases patient was started on Lasix and spironolactone. She tolerated both medications well with improvement of her ascites burden. Patient would likely benefit to increased spironolactone: lasix dose and preferred ratio of 5:2. Will defer to primary care physician to titrate if deemed clinically appropriate. On day of discharge patient had significant improvement in her symptoms. She was deemed appropriate from discharge from the hospital. Pulmonology was consulted prior to discharge and recommended the following: -Continue Tamiflu x10 days -Continue Floxin 70 mg daily x7 days -Initiate Trelegy 100 daily -Consider age-appropriate cancer screening including colonoscopy and mammogram especially in setting of diffuse liver lesions concerning for metastasis with unknown primary.? Consider obtaining CA 19-9 and CA125.? Will defer the management of patient's malignancy evaluation to the primary team.? Mediastinal hilar lymph nodes also amendable for Broch-FNA Due to positioning patient is unable to use an ordinary bed and needs a hospital bed. Order was placed for hospital bed to be used at home. Patient was also discharged on home oxygen therapy. Exam
--- NOTE | 2022-04-04 12:48 | HMH.PHAINT1 ---
Pharmacy Intervention Comments: Discharge counseling completed at bedside with patient and daughter. Discussed indication and possible side effects/mitigation strategies of each new medication and went over continued medications from prior to admission. Patient and daughter verbalized understanding and have no questions or concerns at this time.
--- NOTE | 2022-04-07 15:24 | CARE MANAGER ---
Contacted patient's daughter as patient was unavailable. She states patient is doing much better and received all her medications. Denies questions or concerns at this time. TRISTAN De La Fuente
== END 2022-04-04 13:24 | disposition home or self-care (01) | DRG 193 ==
PROVIDERS: Internal Medicine Adolescent Medicine; Admitting Provider Student in an Organized Health Care Education/Training Program; PCP Family Medicine; Visit Provider Student in an Organized Health Care Education/Training Program
DX: J10.08 Influenza due to other identified influenza virus with other specified pneumonia; J96.01 Acute respiratory failure with hypoxia; C78.00 Secondary malignant neoplasm of unspecified lung; C78.7 Secondary malignant neoplasm of liver and intrahepatic bile duct; E87.6 Hypokalemia; F17.210 Nicotine dependence, cigarettes, uncomplicated; C80.1 Malignant (primary) neoplasm, unspecified; J15.9 Unspecified bacterial pneumonia; J12.9 Viral pneumonia, unspecified
CPT/HCPCS: 36415; 71045; 71275; 80053; 83735; 83880; 83930; 83935; 84100; 84300; 85007; 85025; 87070; 87205; 93306; 94640; 94761; 97162; C9803; J1956; Q9967; U0003; U0005

== ENCOUNTER → 2022-04-07 06:12 | Outpatient (CLI) | payer OTHER, SELFPAY ==
[2022-04-07 06:41] VITALS: BMI 23.0
[2022-04-07 07:09] LABS: Basophils # 0.2 K/mm3 (0-0.2); Basophils % 1.3 % (0.1-2.0); Eosinophils # 0.1 K/mm3 (0.0-0.4); Eosinophils % 0.4 % (0.1-12.0); Hematocrit 44.8 % (37.0-47.0); Hemoglobin 14.5 g/dL (12.2-16.2); Lymphocytes # 1.9 K/mm3 (0.7-4.5); Lymphocytes % 11.2 % (10-50); Mean Corpuscular HGB Conc 32.3 g/dL (31.8-35.4); Mean Corpuscular Hemoglobin 30.8 pg (27.0-31.2); Mean Corpuscular Volume 95.4 fl (81-99); Mean Platelet Volume 9.4 fl (7.4-10.4); Monocytes # 0.7 K/mm3 (0.1-1.0); Monocytes % 4.1 % (1.7-9.3); Neutrophils # 14.3 K/mm3 (1.8-7.8); Platelet Count 168 K/mm3 (142-424); Red Cell Distribution Width 14.5 % (11.5-17.5); White Blood Count 17.2 K/mm3 (4.8-10.8)
[2022-04-07 07:12] LABS: MANUAL DIFFERENTIAL MANUAL DIFFERENTIAL (MANUAL DIFF)
[2022-04-07 07:18] LABS: Anion Gap 11.3 mEq/L (5-15); Blood Urea Nitrogen 20 mg/dl (7-17); Calcium 8.4 mg/dl (8.4-10.2); Carbon Dioxide 39 mmol/L (22.0-30.0); Chloride 93 mmol/L (98-107); Creatinine Clearance Estimated 96 mL/min (50-200); Estimated Glomerular Filt Rate 103 ml/min (>60); GFR (African American) 125 ML/MIN (>60); Glucose 105 mg/dl (74-100); Sodium 141 mmol/L (136-145)
[2022-04-07 07:21] LABS: Activated Partial Thrombo Time 24.4 seconds (22.8-30.6); INR 1.06 (0.9-1.1); Prothrombin Time 11.4 seconds (10.1-12.5)
--- NOTE | 2022-04-07 07:21 | P.PN_ITS ---
[facility] Medical History Acute respiratory failure with hypoxia Hilar lymphadenopathy Hypokalemia Mediastinal lymphadenopathy Multiple lung nodules on CT Pharyngitis Seasonal allergies Surgical History History of cholecystectomy History of total hysterectomy History of tubal ligation Family History Father Hyperlipidemia Hypertension Diabetes Mother Heart attack Hyperlipidemia Hypertension Social History Smoking Status: Former smoker alcohol intake: never substance use type: denies use current occupational status: unemployed Travel in the last 8 weeks: None marital status: single number of children: 2 [facility] Anesthesia Checklist Patient Identification Patient Identification: Arm Band and Verbal (Name & ) Structural Data Admitted From: Home Planned Operative Procedure/s: Liver biopsy Consent for Planned Operative Procedure(s) Verified: Yes NPO Status Verified Time NPO: 00:00 Chart Verification Results Verified: CBC, BMP and PT, PTT, INR Additional verifications Anesthesia Reactions: Yes (DROWSINESS) Hx Blood Transfusions: No Blood Transfusion Reaction: No Airway Assessment C-Spine Mobility Assessed: Yes TMJ Mobility Assessed: Yes Dentition: Good Dentition Neurological Assessment Level of Consciousness: Awake Hx Seizures: No Numbness or tingling in extremities: No Anesthesia Plan Anesthesia Risk discussed: Yes Anesthesia Plan: Verified ASA Class: III Anesthesia Type: MAC
[2022-04-07 07:26] LABS: Potassium 2.3 mmoL/L (3.5-5.1)
--- NOTE | 2022-04-07 07:34 | PC.NURSE ---
0730- HUMAIRA Gastelum called with critical K+ 2.3. Stated she spoke with the PA and they want to see if PCP will correct it. Will call Dr Araceli Manzo for further instructions. Notified anesthesia David
[2022-04-07 07:42] LABS: Lymphocytes % 24 % (10-50); Monocytes % 4 % (2-9); Neutrophils % 71 % (42-76); Platelet Estimate Normal; RBC Morphology Normal; Total Cells Counted 100
--- NOTE | 2022-04-07 07:47 | PC.NURSE ---
0745-msg Bianca Pelayo RN to see if Dr Gomez wants to order K+
--- NOTE | 2022-04-07 08:10 | PC.NURSE ---
0810-Notified Seng @ Dr Nails office of critical K+ Waiting for further instructions
--- NOTE | 2022-04-07 09:04 | PC.NURSE ---
0902- Dr Araceli Manzo office called r/t K+2.3. Dr Manzo instructs for patient to take 2 of her K+ tablets daily. I instructed patient and daughter of change in K+ medication. They both stated understanding of taking 2 tablets K+ daily. and to notify Dr Nails office for FU Removed patients IV applied 2x2 and coban to site, patient dressing with help from daughter.
== END ==
PROVIDERS: PCP Family Medicine; Visit Provider Internal Medicine Medical Oncology
DX: R18.8 Other ascites (principal)
CPT/HCPCS: 80048; 85007; 85025; 85610; 85730

== ENCOUNTER → 2022-04-11 16:04 | Outpatient (CLI) | payer OTHER, SELFPAY ==
--- NOTE | 2022-04-11 16:31 | MM_ITS ---
PROCEDURE INFORMATION: Exam: Bilateral Diagnostic Breast Tomosynthesis Exam date and time: 04/11/2022 4:32 PM Age: 56 years old Clinical indication: Liver mets, trying to find source of cancer TECHNIQUE: Imaging protocol: Bilateral Diagnostic tomosynthesis and 2D mammography including computer-aided detection (CAD) when performed. Unilateral or bilateral exam. COMPARISON: No relevant prior studies available. FINDINGS: MAMMOGRAPHY: The breasts are almost entirely fatty. There is motion artifact in the left MLO projection IMPRESSION: Patient to return for repeat left MLO view at which time a full radiographic interpretation will be made ASSESSMENT: BI-RADS Category 0: Incomplete- Need Additional Imaging Evaluation and/or Prior Mammograms for Comparison
[2022-04-11 16:49] LABS: Chloride 96 mmol/L (98-107); Sodium 140 mmol/L (136-145)
[2022-04-11 16:51] LABS: Alanine Aminotransferase 173 U/L (12-78); Alkaline Phosphatase 469 U/L (38-126); Aspartate Amino Transferase 137 U/L (14-36); Bilirubin,Total 0.9 mg/dl (0.2-1.3); Blood Urea Nitrogen 26 mg/dl (7-17); Estimated Glomerular Filt Rate 86 ml/min (>60); GFR (African American) 104 ML/MIN (>60)
[2022-04-11 16:52] LABS: Albumin/Globulin Ratio 1.2 (1.1-1.8); Calcium 8.8 mg/dl (8.4-10.2); Globulin 2.5 g/dL (1.3-3.2); Glucose 271 mg/dl (74-100); Total Protein,Serum 5.5 g/dl (6.3-8.2)
[2022-04-11 16:59] LABS: Carbon Dioxide 38 mmol/L (22.0-30.0)
[2022-04-11 17:01] LABS: Anion Gap 8.9 mEq/L (5-15)
[2022-04-11 17:06] LABS: Potassium 2.9 mmoL/L (3.5-5.1)
== END ==
PROVIDERS: PCP Family Medicine; Visit Provider Internal Medicine Medical Oncology
DX: C78.7 Secondary malignant neoplasm of liver and intrahepatic bile duct (principal); E87.6 Hypokalemia; R60.0 Localized edema; C80.0 Disseminated malignant neoplasm, unspecified; C79.51 Secondary malignant neoplasm of bone
CPT/HCPCS: 36415; 77062; 77066; 80053; G0279

== ENCOUNTER 2022-04-14 07:01 | Outpatient (CLI) | payer OTHER, SELFPAY ==
[2022-04-14] VITALS (7 sets, daily range): BP systolic 144–161; BP diastolic 70–77; PULSE 69–80; RESP 16–18; TEMP 36.6–37.2; O2SAT 93–98; BMI 23.0
[2022-04-14 07:44] LABS: Basophils # 0.2 K/mm3 (0-0.2); Basophils % 1.1 % (0.1-2.0); Eosinophils # 0.1 K/mm3 (0.0-0.4); Eosinophils % 0.9 % (0.1-12.0); Hematocrit 40.8 % (37.0-47.0); Hemoglobin 13.1 g/dL (12.2-16.2); Lymphocytes # 1.1 K/mm3 (0.7-4.5); Lymphocytes % 7.4 % (10-50); Mean Corpuscular HGB Conc 32.1 g/dL (31.8-35.4); Mean Corpuscular Hemoglobin 31.3 pg (27.0-31.2); Mean Corpuscular Volume 97.5 fl (81-99); Mean Platelet Volume 8.8 fl (7.4-10.4); Monocytes # 0.5 K/mm3 (0.1-1.0); Monocytes % 3.4 % (1.7-9.3); Neutrophils # 13.2 K/mm3 (1.8-7.8); Neutrophils % 87.2 % (37.0-80.0); Platelet Count 139 K/mm3 (142-424); Red Blood Count 4.19 M/mm3 (4.20-5.40); Red Cell Distribution Width 14.5 % (11.5-17.5); White Blood Count 15.1 K/mm3 (4.8-10.8)
[2022-04-14 07:46] LABS: MANUAL DIFFERENTIAL MANUAL DIFFERENTIAL (MANUAL DIFF)
[2022-04-14 07:48] LABS: Chloride 101 mmol/L (98-107); Sodium 139 mmol/L (136-145)
[2022-04-14 07:49] LABS: Potassium 3.3 mmoL/L (3.5-5.1)
[2022-04-14 07:51] LABS: Blood Urea Nitrogen 25 mg/dl (7-17); Creatinine Clearance Estimated 96 mL/min (50-200); Estimated Glomerular Filt Rate 103 ml/min (>60)
[2022-04-14 07:52] LABS: Anion Gap 1.3 mEq/L (5-15); Calcium 9.1 mg/dl (8.4-10.2); Carbon Dioxide 40 mmol/L (22.0-30.0); GFR (African American) 125 ML/MIN (>60); Glucose 105 mg/dl (74-100)
[2022-04-14 08:00] LABS: Lymphocytes % 18 % (10-50); Monocytes % 5 % (2-9); Neutrophils % 77 % (42-76); Platelet Estimate Normal; RBC Morphology Normal; Total Cells Counted 100
[2022-04-14 08:08] LABS: Activated Partial Thrombo Time 22.8 seconds (22.8-30.6); INR 1.01 (0.9-1.1); Prothrombin Time 10.9 seconds (10.1-12.5)
--- NOTE | 2022-04-14 08:21 | CT_ITS ---
FINAL REPORT CLINICAL HISTORY: liver lesion. FINDINGS: CT- GUIDED LIVER MASS BIOPSY HISTORY: Multiple liver masses, suspected metastatic disease. ATTENDING PHYSICIAN: Dr. Muniz PHYSICIAN OB GYN PHYSICIAN ASSISTANT: Patricia Hutton PA-C. CONSCIOUS SEDATION: Sedation was provided by the anesthesia service. TECHNIQUE: Informed consent was obtained from the patient. Timeout procedure was performed prior to beginning. Limited noncontrast CT images were obtained of the liver. The appropriate site was localized for biopsy. The biopsy region was prepped in routine sterile fashion and locally anesthetized with 1% lidocaine. A 17-gauge guide needle was directed with images acquired into the inferior right hepatic lobe. Using coaxial technique, 4 separate 18-gauge core biopsies were obtained. Pathologist was present and deemed the specimen adequate. Procedure was well tolerated. Postprocedural imaging demonstrated a very small amount of perihepatic hemorrhage. CONCLUSION: 1. Successful CT guided liver mass biopsy. Reviewed, Interpreted and Dictated by Jayro Muniz III, MD Transcribed by Patricia Hutton PA-C Authenticated and [facility]
== END 2022-04-14 11:07 | disposition home or self-care (01) ==
PROVIDERS: Nurse Anesthetist, Certified Registered; PCP Family Medicine; Visit Provider Internal Medicine Medical Oncology
DX: C78.7 Secondary malignant neoplasm of liver and intrahepatic bile duct (principal)
CPT/HCPCS: 47000; 77012; 80048; 85007; 85025; 85610; 85730

== ENCOUNTER → 2022-04-16 13:14 | Outpatient (CLI) | payer OTHER, SELFPAY ==
[2022-03-31 09:50] VITALS: BMI 23.0
--- NOTE | 2022-03-31 10:06 | PC.NURSE ---
Pt here for liver bx., states she is not feeling well. Pt coughing. Temp 101.1, SaO2 86% on on room air. Spoke to radiology and Marcos Tracy CRNA. Determined pt should reschedule Bx and follow up with her PMD. Called Dr Manzo's office and arranged for her to be evaluated. Pt sent to Dr Manzo's office directly from preop.
[2022-03-31 14:37] LABS: Activated Partial Thrombo Time 25.9 seconds (22.8-30.6); INR 1.03 (0.9-1.1); Prothrombin Time 11.1 seconds (10.1-12.5)
== END ==
PROVIDERS: PCP Family Medicine; Visit Provider Internal Medicine Medical Oncology
DX: C78.7 Secondary malignant neoplasm of liver and intrahepatic bile duct (principal)
CPT/HCPCS: 85610; 85730

== ENCOUNTER → 2022-04-17 14:38 | Outpatient (CLI) | payer OTHER, SELFPAY ==
[2022-04-17 17:22] LABS: Alanine Aminotransferase 169 U/L (12-78); Albumin/Globulin Ratio 1.2 (1.1-1.8); Alkaline Phosphatase 455 U/L (38-126); Aspartate Amino Transferase 99 U/L (14-36); Bilirubin,Total 0.9 mg/dl (0.2-1.3); Blood Urea Nitrogen 20 mg/dl (7-17); Calcium 9.1 mg/dl (8.4-10.2); Chloride 97 mmol/L (98-107); Estimated Glomerular Filt Rate 86 ml/min (>60); GFR (African American) 104 ML/MIN (>60); Globulin 2.6 g/dL (1.3-3.2); Glucose 87 mg/dl (74-100); Potassium 3.2 mmoL/L (3.5-5.1); Sodium 141 mmol/L (136-145); Total Protein,Serum 5.6 g/dl (6.3-8.2)
[2022-04-17 17:29] LABS: Anion Gap 7.2 mEq/L (5-15); Carbon Dioxide 40 mmol/L (22.0-30.0)
== END ==
PROVIDERS: PCP Family Medicine; Visit Provider Internal Medicine Medical Oncology
DX: R60.9 Edema, unspecified (principal)
CPT/HCPCS: 36415; 80053

== ENCOUNTER → 2022-04-23 07:50 | Outpatient (CLI) | payer OTHER, SELFPAY ==
--- NOTE | 2022-04-23 07:51 | MR_ITS ---
FINAL REPORT CLINICAL HISTORY: SMALL CELL LUNG CANCER FINDINGS: Multiplanar MR imaging of the brain was performed without and with contrast. There is mild age-appropriate atrophy. Scattered foci of increased T2 signal are seen in the cerebral white matter that have a nonspecific appearance but likely represent mild chronic ischemic/gliotic changes. There is no evidence of intracranial hemorrhage or mass. No abnormal ventricular dilatation is identified. There is no evidence of shift of the midline structures. No abnormal extra-axial fluid collection is seen. No area of abnormal restricted diffusion is identified. The posterior fossa and brainstem have an unremarkable appearance. No abnormal contrast enhancement is seen. There is moderate mucosal thickening in the right maxillary sinus. There is a fluid level in the right maxillary sinus consistent with acute sinusitis. Normal major vessel vascular flow voids are seen. IMPRESSION: Right maxillary sinusitis. Mild atrophy and chronic ischemic/gliotic changes. No acute intracranial abnormality. Reviewed, Interpreted and Dictated by Jayro Muniz III, MD Transcribed by Tuan Ibanez Authenticated and [facility]
== END ==
PROVIDERS: PCP Family Medicine; Visit Provider Internal Medicine Medical Oncology
DX: C80.1 Malignant (primary) neoplasm, unspecified (principal)
CPT/HCPCS: 70553; A9576